=== PATIENT | female | born 1935 | race African-American/Black ===

== ENCOUNTER 2018-09-02 11:48 | Emergency (ER) | payer OTHER ==
--- OUTSIDE RECORDS SUMMARY | 2018-09-02 11:52 | XMS REPORT | Summary of Care ---
:1935 Author Organization [facility] Radiology [place] Address [address] [place] [address]- Encounter HQ Encntr_aliwilliam(FIN) [id number] Date(s): 09/28/17 - 09/28/[address] [place] [phone] [phone] Attending Physician: VISIT, NURSE ST[facility] MAMMO Vital Signs No data available for this section Problem List Condition Effective Dates Status Health Status Informant Body mass index (BMI) of 22.0-22.9 in Active adult(Confirmed) Drug therapy(Confirmed) Active Hypertensive disorder1 Active Other specified Active hypothyroidism(Confirmed) Inguinal adenopathy(Confirmed) Active Inguinal pain2 01/08/13 Active Neutropenia, unspecified(Confirmed) Active 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 Allergies, Adverse Reactions, Alerts Substance Reaction Severity Status penicillins1 Active lisinopril2 Active meloxicam3, 4 Active 1Data migrated from [employer] on 06/07/15. Originally documented as PENICILLIN.2Data migrated from [employer] on 03/08/15. Originally documented as ZESTRIL.3Data migrated from [employer] on 03/08/15. Originally documented as MOBIC.4Data migrated from [employer] on 03/08/15. Originally documented as MELOXICAM. Medications No data available for this section Results No data available for this section Immunizations Given and Recorded Vaccine Date Status Refusal Reason influenza virus vaccine, inactivated 09/28/17 Given influenza virus vaccine, inactivated 08/08/16 Given influenza virus vaccine, inactivated1 08/25/13 Given Hx influenza vaccine-unspecified2 08/25/13 Given pneumococcal 23-valent vaccine3 08/10/12 Given 1Result Comment: fluzone high dose [[id number]]. Migrated from OBS ; Data migrated from [employer] on 12/11/2015.2Result Comment: given. Migrated from OBS ; Data migrated from [employer] on 12/11/2015.3Result Comment: pneumovax. Migrated from [employer] VIS: given August 10, 2012. ; Data migrated from [employer] on 12/11/2015. Procedures Procedure Date Related Diagnosis Body Site Hysterectomy Laminectomy1 Procedure on thyroid gland 1Post op discitis, pain, Social History Social History Type Response Substance Abuse Use: None. Exercise Exercise frequency: 5-6 times/week. Exercise type: Walking. 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 Highest education level: High school. Alcohol Never Smoking Status Never smoker; Exposure to Tobacco Smoke None; Cigarette Smoking Last 365 Days No; Reg Smoking Cessation Counseling No Assessment and Plan No data available for this section
--- OUTSIDE RECORDS SUMMARY | 2018-09-02 11:52 | XMS REPORT | Summary of Care ---
:1935 Author Organization [facility] Address [address] [place] [address]- Encounter HQ Betsyr_ag(FIN) [id number] Date(s): 03/23/18 - 03/23/18 [facility] [address] [place] [phone] [phone] Discharge Disposition: Home or Self Care Attending Physician: Law Nesbitt MD Vital Signs Most recent to oldest [Reference Range]: 1 Height 172.72 cm (03/23/18 9:24 AM) Temperature Oral [96.4-99.1 DegF] 98.8 DegF (03/23/18 9:24 AM) Blood Pressure [90-140/60-90 mmHg] 160/90 mmHg *HI* (03/23/18 9:24 AM) Respiratory Rate [14-20 BRMIN] 14 BRMIN (03/23/18 9:24 AM) Peripheral Pulse Rate [60-100 bpm] 60 bpm (03/23/18 9:24 AM) Weight 70.455 kg (03/23/18 9:24 AM) Body Mass Index 23.62 m2 (03/23/18 9:24 AM) Problem List Condition Effective Dates Status Health [...] Active Tinea pedis(Confirmed) Active 1Data migrated from [employer] on 04/07/15.2Data migrated from [employer] [...] on 03/08/15. Originally documented as MELOXICAM. Medications clobetasol topical 0.05% ointment 1 appl, TOP, BID, # 45 gm, 0 Refill(s) Start Date: 03/23/18 Status: Ordereddiltiazem 300 mg/24 hours oral capsule, extended release 300 mg=1 cap, PO, Daily, # 90 cap, 3 Refill(s), Pharmacy: [facility] Start Date: 03/23/18 Stop Date: 03/18/19 Status: OrderedSynthroid 100 mcg (0.1 mg) oral tablet 100 microgram=1 tab, PO, Daily, # 90 tab, 3 Refill(s), Pharmacy: [facility] Start Date: 03/23/18 Stop Date: 03/18/19 Status: Ordered Results No data available for this section Immunizations Given and Recorded Vaccine Date Status Refusal Reason influenza virus vaccine, inactivated 09/28/17 Given influenza virus vaccine, inactivated 08/08/16 Given influenza virus vaccine, inactivated1 08/25/13 Given Hx influenza vaccine-unspecified2 08/25/13 Given pneumococcal 23-valent vaccine3 08/10/12 Given 1Result Comment: fluzone high dose [[id number]]. Migrated from OBS ; Data migrated from [employer] on 12/11/2015.2Result Comment: given. Migrated from OBS ; Data migrated from [employer] on 12/11/2015.3Result Comment: pneumovax. Migrated from OBS VIS: given August 10, 2012. ; Data migrated from [employer] on 12/11/2015. Procedures Procedure Date Related Diagnosis Body Site Status Hysterectomy Completed Laminectomy1 Completed Procedure on thyroid gland Completed 1Post op discitis, pain, Social History Social History Type Response Substance Abuse Use: None. Exercise Exercise frequency: 5-6 times/week. Exercise type: Walking. 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 Highest education level: High school. Alcohol Never Smoking Status Never smoker; Exposure to Tobacco Smoke None; Cigarette Smoking Last 365 Days No; Reg Smoking Cessation Counseling No entered on: 03/23/18 Assessment and Plan No data available for this section
--- OUTSIDE RECORDS SUMMARY | 2018-09-02 11:52 | XMS REPORT | Summary of Care ---
:1935 Author Organization [facility] Radiology [place] Address [address] [place] [address]- Encounter HQ Encntr_alias(FIN) [id number] Date(s): 03/23/18 - 03/23/[address] [place] [address] [phone] Attending Physician: VISIT, NURSE [facility] DEXA Vital Signs No data available for this [...] 08/10/12 Given 1Result Comment: fluzone high dose [[id number]]. Migrated from [employer] ; Data migrated from [employer] on 12/11/2015.2Result Comment: given. Migrated from OBS ; Data migrated from [employer] on 12/11/2015.3Result Comment: pneumovax. Migrated from [employer] VIS: given August 10, 2012. ; Data migrated from [employer] on 12/11/2015. Procedures Procedure Date Related Diagnosis Body Site Status Hysterectomy Completed Laminectomy1 Completed Procedure on thyroid gland Completed 1Post op discitis, pain, Social History Social History Type Response Substance Abuse Use: None. Exercise Exercise frequency: 5-6 times/week. Exercise type: Walking. 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 Highest education level: High school. Alcohol Never Smoking Status Never smoker; Exposure to Tobacco Smoke None; Cigarette Smoking Last 365 Days No; Reg Smoking Cessation Counseling No entered on: 03/23/18 Assessment and Plan No data available for this section
--- OUTSIDE RECORDS SUMMARY | 2018-09-02 11:52 | XMS REPORT | Continuity of Care Document ---
:1935 Author Organization Interface Problems Problem Status Onset Classification Date Comments Source Date Reported Lichen sclerosus Active 09/15/20 Problem 03/26/2018 Data migrated Medical et 14 from [employer] Group atrophicus<sup>3< Centricity on /sup> 04/07/15. Pain in lower Active 08/30/20 Problem 03/26/2018 Data migrated Medical limb<sup>4</sup> 14 from Group [employer] on 04/07/15. Inguinal Active 01/09/20 Problem 03/26/2018 Data migrated Medical pain<sup>2</sup> 13 from Group [employer] on 04/07/15. Body mass index Active Problem 03/26/2018 Medical of 22.0-22.9 in Group adult(<span ID="[id number]" >Confirmed</span> ) Drug therapy Active Problem 03/26/2018 Medical Group Hypertensive Active Problem 03/26/2018 Data migrated Medical disorder<sup>1</s from Group up> Centricity on 04/07/15. Other specified Active Problem 03/26/2018 Medical hypothyroidism Group Inguinal Active Problem 03/26/2018 Medical adenopathy Group Neutropenia, Active Problem 03/26/2018 Medical unspecified Group Mixed Active Problem 03/26/2018 Medical hyperlipidemia Group Osteopenia Active Problem 03/26/2018 Medical Group Screening for Active Problem 03/26/2018 Medical breast cancer Group Screen for colon Active Problem 03/26/2018 Medical cancer Group Tinea pedis Active Problem 03/26/2018 Medical Group Medications Medication Details Route Status Patient Ordering Order Source Instructions Provider Date Clobetasol 1 appl, Active Propionate TOP, BID, # 018 Medical 0.0005 MG/MG 45 gm, 0 Group Topical Ointment Refill(s) diltiazem 300 300 mg=1 Active mg/24 hours oral cap, PO, 018 Medical capsule, Daily, # 90 Group extended release cap, 3 Refill(s), Pharmacy: [facility] Levothyroxine 100 Active Sodium 0.1 MG microgram=1 018 Medical Oral Tablet tab, PO, Group [Synthroid] Daily, # 90 tab, 3 Refill(s), Pharmacy: [facility] Allergies, Adverse Reactions, Alerts Substance Category Reaction Severity Reaction Status Date Comments Source type Reported meloxicam<s Assertion Drug Active Data MH up>3, allergy 4 migrated Medical 4</sup> from [employer] on 03/08/15. Originally documented as MELOXICAM. penicillins Assertion Drug Active Data MH <sup>1</sup allergy migrated Medical > from [employer] on 06/07/15. Originally documented as PENICILLIN. lisinopril< Assertion Drug Active Data MH sup>2</sup> allergy migrated Medical from [employer] on 03/08/15. Originally documented as ZESTRIL. Immunizations Immunization Date Site Status Last Comments Source Given Updated influenza virus Left completed [facility] Medical vaccine, 7 Deltoid Group inactivated influenza virus Left completed [facility] Medical vaccine, 6 Deltoid Group inactivated Hx influenza completed GE Result Medical vaccine-unspecif 3 Comment: Group ied<sup>2</sup> given. Migrated from OBS ; Data migrated from [employer] on 12/11/2015. influenza virus Left completed [facility] Result Medical vaccine, 3 Deltoid Comment: Group inactivated<sup> fluzone high 1</sup> dose [[id number]]. Migrated from OBS ; Data migrated from [employer] on 12/11/2015. pneumococcal Right completed GE Result Medical 23-valent 2 Deltoid Comment: Group vaccine<sup>3</s pneumovax. up> Migrated from OBS VIS: given August 10, 2012. ; Data migrated from [employer] on 12/11/2015. Results Order Name Results Value Reference Date Interpretation Comments Source Range Breast Breast 09/28 - [facility] [place] ANT incl ANT incl CAD MA CAD MA Read by: Kelby Haley MD Dictated Date/time: 09/28/17 11:39 BILATERAL DIGITAL SCREENING MAMMOGRAM WITH CAD: 09/28/2017 Electronically Signed by: Kelby Haley MD 09/28/17 11 :39 FINAL REPORT Current study was evaluated with a Computer Aided Detection (CAD) system. COMPARISON:Comparison is made to exams dated: 09/26/2016 mammogram, 2014 mammogram, 08/30/2014 mammogram - [facility], and 08/25/2013 mammogram. TECHNIQUE: Mammographic views were obtained using digital acquisition. Current study was also evaluated with a Computer Aided Detection (CAD) system. There are scattered fibroglandular densities in both breasts. FINDINGS: There are benign calcifications in both breasts. No significant masses, calcifications, or other findings are seen in either breast. There has been no significant interval change. IMPRESSION: BENIGN RECOMMENDATION:There is no mammographic evidence of malignancy. A 1 year screening mammogram is recommended.(09/29/2018) This exam was interpreted at [id number] for [facility]. Kelby Haley M.D. ap/penrad:09/28/2017 11:39:58 Central Office Repairer(s): Therese Aguilera, [facility] letter sent: BI-RADS 1/2 Mammogram BI-RADS: 2 Benign Digital Digital - DIGITAL MAMMO SCREENING ANT SILVA 09/26 - [facility] /2016 - [place] Screening Screening BILATERAL DIGITAL SCREENING MAMMOGRAM WITH CAD: 2015 Ant RICARDO Cain MA CLINICAL: Screening. Read by: Robert Saucedo MD Dictated Date/time: 10/09/16 14:22 Electronically Signed by: Robert Saucedo MD 10/09/16 14:22 FINAL REPORT Current study was evaluated with a Computer Aided Detection (CAD) system. Comparison is made to exams dated: 09/10/2015 mammogram and 08/30/2014 mammogram - [facility]. There are scattered fibroglandular densities in both breasts. There are benign calcifications in both breasts. No significant masses, calcifications, or other findings are seen in either breast. There has been no significant interval change. IMPRESSION: BENIGN There is no mammographic evidence of malignancy. A 1 year screening mammogram is recommended. Robert Saucedo M.D. sj/penrad:10/09/2016 14:22:03 Central Office Repairer: Rosario Holt, [facility] This exam was dictated and interpreted by [id number] for [facility]. letter sent: Normal exam Mammogram BI-RADS: 2 Benign Bone Bone EXAM: 08/29 - [facility] Density Density /2015 - [place] DXA Dual DXA Dual Bone densitometry (DEXA). Energy MA Energy MA Read by: Josue Razo MD Dictated Date/time: 08/30/16 09:48 CLINICAL: Electronically Signed by: Josue Razo MD 08/30/16 09:50 FINAL REPORT Routine screening. Additional: ; . Age: 81 years. Gender: Female. Menopausal status: Postmenopausal. TECHNIQUE: Bone mineral density (BMD) analysis was performed. Equipment: [employer] QDR 4500C. COMPARISON: Bone densitometry: None. FINDINGS: L1-L4 Vertebra: BMD: 1.179. T score: 0.3. WHO criteria valuation for this body part is normal. Left Femoral Neck: BMD: 0.805. T score: -1. WHO criteria valuation for this body part is normal. Left Hip: BMD: 0.916. T score: -0.7. WHO criteria valuation for this body part is normal. IMPRESSION: 1. BMD valuation by WHO criteria is normal. Note: World Health Organization (WHO) Criteria: 1. For postmenopausal/perimenopausal females and males >/=50 years old, T scores (standard deviations above or below the gender-matched young-adult mean) are used. a. T score >/=-1 is "normal." b. T score -1 to -2.5 is "osteopenia." c. T score </=-2.5 is "osteoporosis." 2. For premenopausal females and males <50 years old, Z scores (standard deviations above or below the gender-matched and age-matched mean) are used. a. Z score > -2 is "within the expected range for age." b. Z score </=-2 is "below the expected range for age." 3. When appropriate, a medical evaluation for secondary causes of low BMD may be considered. Chest 2 Chest 2 CHEST PA AND LATERAL 08/08 - [facility] views DX views DX /2015 - [place] History: 81-year-old female with hypertension and inguinal adenopathy. Read by: Aidan Gonsalez MD Dictated Date/time: 08/08/16 13:43 Electronically Signed by: Aidan Gonsalez 08/08/16 13:44 FINAL REPORT Comparison: None. Findings: Lungs: The lungs are hyper expanded without an infiltrate, consolidation or nodule. Pleura: No pleural effusion. Mediastinum and bonilla: Unremarkable with calcifications along the aortic arch. Heart size: Normal. Skeletal: Unremarkable. IMPRESSION: Hyperexpanded lungs. There is no acute cardio pulmonary abnormality. Digital Digital - DIGITAL MAMMO SCREENING ANT SILVA 09/10 - [facility] /2014 - [place] Screening Screening BILATERAL DIGITAL SCREENING MAMMOGRAM WITH CAD: 2014 Ant Cain MA Current study was evaluated with a Computer Aided Detection (CAD) system. Read by: Josue Razo MD Dictated Date/time: 09/11/15 11:14 Comparison is made to exams dated: 08/30/2014 mammogram - [facility] and 08/25/2013 mammogram. Electronically Signed by: Jsoue Razo MD 09/11/15 11 :14 FINAL REPORT There are scattered fibroglandular densities in both breasts. There are benign calcifications in both breasts. No significant masses, calcifications, or other findings are seen in either breast. There has been no significant interval change. IMPRESSION: BENIGN There is no mammographic evidence of malignancy. A 1 year screening mammogram is recommended. Josue puente/penmarek:09/11/2015 11:14:41 Central Office Repairer: Rosario Holt, [facility] This exam was dictated and interpreted by [id number] for [facility]. letter sent: Normal exam Mammogram BI-RADS: 2 Benign Vital Signs Vital Sign Value Date Comments Source Weight 70.455 03/23/2018 Medical Group BMI Calculated 23.62 03/23/2018 Medical [facility] Height 172.72 cm 03/23/2018 Medical Group Respitory Rate 14 03/23/2018 Medical Group Temperature Oral (F) 98.8 F 03/23/2018 Medical Group Heart Rate 60 03/23/2018 Medical Group Systolic (mm Hg) 160 03/23/2018 Medical Group Diastolic (mm Hg) 90 03/23/2018 Medical Group Height 173.99 cm 09/28/2017 Medical Group BMI Calculated 23.42 09/28/2017 Medical Group Weight 70.909 09/28/2017 Medical Group Systolic (mm Hg) 140 09/28/2017 Medical Group Diastolic (mm Hg) 80 09/28/2017 Medical Group Temperature Oral (F) 98.3 F 09/28/2017 Medical Group Respitory Rate 15 09/28/2017 Medical Group Heart Rate 68 09/28/2017 Medical Group Encounters Location Location Encounter Encounter Reason Attending ADM DC Status Source Details Type Number For Provider Date Date Visit Outpatient [id number] RENATA 09/10 [facility] [place] Outpatient [id number] MAMMO VISIT 09/10 [facility] [place] Outpatient [id number] MAMMO VISIT 09/10 [facility] [place] Outpatient [id number] XRAY VISIT 08/08 [facility] [place] Outpatient [id number] XRAY VISIT 08/08 [facility] [place] Outpatient [id number] RENATA 08/08 [facility] [place] Outpatient [id number] ADRIENNE-MAGGIE 08/22 [facility] [place] Outpatient [id number] RENATA 08/22 [facility] [place] Outpatient [id number] DEXA VISIT 08/26 [facility] [place] Outpatient [id number] DEXA VISIT 08/29 [facility] [place] Outpatient [id number] DEXA VISIT 08/29 [facility] [place] Outpatient [id number] CARDIO/PULM 08/29 [facility] O VISIT /2015 [place] Outpatient [id number] MAMMO VISIT 09/22 [facility] [place] Outpatient [id number] MAMMO VISIT 09/26 [facility] [place] Outpatient [id number] MAMMO VISIT 09/26 [facility] [place] Outpatient [id number] RENATA 02/20 [facility] [place] Outpatient [id number] RENATA 06/19 [facility] [place] Outpatient [id number] RENATA 09/28 [facility] [place] Outpatient [id number] MAMMO VISIT 09/28 [facility] [place] Outpatient [id number] MAMMO VISIT 09/28 [facility] [place] [facility] Outpatient [id number] Renata 09/28 09/29 [facility] [place] [facility] Ambulatory [id number] NURSE VISIT 09/28 09/28 Radiology Pre-Reg Medical [place] [facility] Outpatient [id number] Renata 09/28 09/29 [facility] Group [place] Outpatient [id number] DEXA VISIT 03/23 [facility] [place] Outpatient [id number] RENATA 03/23 [facility] [place] [facility] Ambulatory [id number] NURSE VISIT 03/23 03/23 Radiology Pre-Reg /2017 Medical [place] [facility] Outpatient [id number] Renata 03/23 03/24 [facility] Medicine Group [place] Outpatient [id number] DEXA VISIT 09/29 [facility] [place] Outpatient [id number] RENATA 09/29 [facility] [place] Procedures Procedure Code Date Perfomer Comments Source Hysterectomy [id number] Medical Group Laminectomy<sup>1</ [id number] Post op Medical sup> discitis, Group pain, Procedure on [id number] Medical thyroid gland Group
--- OUTSIDE RECORDS SUMMARY | 2018-09-02 11:52 | XMS REPORT | Summary of Care ---
:1935 Author Organization [facility] Address [address] [place] [address]- Encounter HQ Pretty_ag(FIN) [id number] Date(s): 09/28/17 - 09/28/17 [facility] [address] [place] [phone] Discharge Disposition: Home or Self Care Attending Physician: Law Nesbitt MD Vital Signs Most recent to oldest [Reference Range]: 1 Height 173.99 cm (09/28/17 8:43 AM) Temperature Oral [96.4-99.1 DegF] 98.3 DegF (09/28/17 8:43 AM) Blood Pressure [90-140/60-90 mmHg] 140/80 mmHg (09/28/17 8:43 AM) Respiratory Rate [14-20 BRMIN] 15 BRMIN (09/28/17 8:43 AM) Peripheral Pulse Rate [60-100 bpm] 68 bpm (09/28/17 8:43 AM) Weight 70.909 kg (09/28/17 8:43 AM) Body Mass Index 23.42 m2 (09/28/17 8:43 AM) Problem List Condition Effective Dates Status [...] 03/08/15. Originally documented as MELOXICAM. Medications No Known Medications Results No data available for this section Immunizations Given and Recorded Vaccine Date Status Refusal Reason influenza virus vaccine, inactivated 09/28/17 Given influenza virus vaccine, inactivated 08/08/16 Given influenza virus vaccine, inactivated1 08/25/13 Given Hx influenza vaccine-unspecified2 08/25/13 Given pneumococcal 23-valent vaccine3 08/10/12 Given 1Result Comment: fluzone high dose [[id number]]. Migrated from OBS ; Data migrated from [employer] on 12/11/2015.2Result Comment: given. Migrated from OBS ; Data migrated from [employer] on 12/11/2015.3Result Comment: pneumovax. Migrated from OBS VIS: 7 -29 -97 given August 10, 2012. ; Data migrated from [employer] on 12/11/2015. Procedures Procedure Date Related Diagnosis Body Site Hysterectomy Laminectomy1 Procedure on thyroid gland 1Post op discitis, pain, Social History Social History Type Response Substance Abuse Use: None. Exercise Exercise frequency: 5-6 times/week. Exercise type: Walking. Employment/School Status: Retired. Work/School description: [employer]. Highest education level: High school. Alcohol Never Smoking Status Never smoker; Exposure to Tobacco Smoke None; Cigarette Smoking Last 365 Days No; Reg Smoking Cessation Counseling No Assessment and Plan No data available for this section
--- OUTSIDE RECORDS SUMMARY | 2018-09-02 11:52 | XMS REPORT | Summary of Care ---
:1935 Author Organization [facility] [address] [place] [address]- Encounter HQ Pretty_ag(FIN) [id number] Date(s): 09/28/17 - 09/28/17 [facility] [address] [place] [phone] Discharge Disposition: Home or Self Care Attending Physician: Law Nesbitt MD Vital Signs No data available for this [...] 08/10/12 Given 1Result Comment: fluzone high dose [[id number]]. Migrated from OBS ; Data migrated from [employer] on 12/11/2015.2Result Comment: given. Migrated from OBS ; Data migrated from [employer] on 12/11/2015.3Result Comment: pneumovax. Migrated from OBS VIS: given August 10, 2012. ; Data migrated from [employer] on 12/11/2015. Procedures Procedure Date Related Diagnosis Body Site Hysterectomy Laminectomy1 Procedure on thyroid gland 1Post op discitis, pain, Social History Social History Type Response Substance Abuse Use: None. Exercise Exercise frequency: 5-6 times/week. Exercise type: Walking. 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 Highest education level: High school. Alcohol Never Smoking Status Never smoker; Exposure to Tobacco Smoke None; Cigarette Smoking Last 365 Days No; Reg Smoking Cessation Counseling No Assessment and Plan No data available for this section
--- NOTE | 2018-09-02 13:43 | ER ---
Nurse's Notes [facility] Name: Dinora Gutierrez Age: 83 yrs Sex: Female : 1935 Arrival Date: 09/02/2018 Time: 11:50 Bed 10 Private MD: Diagnosis: Asymptomatic Hypertension Presentation: 09/02 11:53 Presenting complaint: Patient states: "I just want to check my blood pressure. It was aj1 up high a little a week ago and I need to follow up on it. My doctor is in [place] and I don't want to drive all the way up there." Denies pain.. Transition of care: patient was not received from another setting of care. Onset of symptoms was September 02, 2018. Risk Assessment: Do you want to hurt yourself or someone else? Patient reports no desire to harm self or others. Initial Sepsis Screen: Does the patient meet any 2 criteria? No. Patient's initial sepsis screen is negative. Does the patient have a suspected source of infection? No. Patient's initial sepsis screen is negative. Care prior to arrival: None. 11:53 Method Of Arrival: Ambulatory aj1 11:53 Acuity: XAVIER 4 aj1 Triage Assessment: 11:55 General: Appears in no apparent distress. comfortable, Behavior is calm, cooperative, aj1 appropriate for age. Pain: Denies pain. Neuro: Level of Consciousness is awake, alert, obeys commands. Cardiovascular: Patient's skin is warm and dry. Respiratory: Airway is patent Respiratory effort is even, unlabored, Respiratory pattern is regular, symmetrical. Historical: - Allergies: 11:55 PENICILLINS; aj1 11:55 zestil; aj1 - Home Meds: 11:55 Cartia XT 300 mg Oral cp24 1 cap once daily [Active]; levothyroxine 100 mcg tab 1 tab aj1 once daily [Active]; - PMHx: 11:55 Hypertension; Hypothyroidism; aj1 - Immunization history:: Flu vaccine is not up to date. - Social history:: Smoking status: Patient/guardian denies using tobacco. - Ebola Screening: : Patient denies travel to an Ebola-affected area in the 21 days before illness onset. - Family history:: not pertinent. - Hospitalizations: : No recent hospitalization is reported. Screenin:02 Abuse screen: Denies threats or abuse. Denies injuries from another. Nutritional aj1 screening: No deficits noted. Tuberculosis screening: No symptoms or risk factors identified. 12:57 Fall Risk None identified. aj1 Assessment: 12:02 General: Appears in no apparent distress. comfortable, Behavior is calm, cooperative, aj1 appropriate for age. Pain: Denies pain. Neuro: Level of Consciousness is awake, alert, obeys commands, Denies headache. Cardiovascular: Patient's skin is warm and dry. Respiratory: Airway is patent Respiratory effort is even, unlabored, Respiratory pattern is regular, symmetrical. GI: No signs and/or symptoms were reported involving the gastrointestinal system. : No signs and/or symptoms were reported regarding the genitourinary system. EENT: No signs and/or symptoms were reported regarding the EENT system. Derm: No signs and/or symptoms reported regarding the dermatologic system. Skin is pink, warm \\T\\ dry. normal. Musculoskeletal: No signs and/or symptoms reported regarding the musculoskeletal system. Circulation, motion, and sensation intact. Vital Signs: 11:55 BP 170 / 82; Pulse 74; Resp 16; Temp 97.0; Pulse Ox 99% on R/A; Weight 70.31 kg (R); aj1 Height 5 ft. 10 in. (177.80 cm) (R); Pain 0/10; 12:57 BP 165 / 91; Pulse 77; Resp 18; aj1 11:55 Body Mass Index 22.24 (70.31 kg, 177.80 cm) aj1 ED Course: 11:50 Patient arrived in ED. as 11:54 Triage completed. aj1 11:55 Arm band placed on Patient placed in an exam room. aj1 11:58 Paul Ramos MD is Attending Physician. rn 12:02 Patient has correct armband on for positive identification. Bed in low position. Call aj1 light in reach. Side rails up X 1. 12:02 No provider procedures requiring assistance completed. aj1 12:57 Patient did not have IV access during this emergency room visit. aj1 Administered Medications: No medications were administered Outcome: 12:34 Discharge ordered by . rn 12:57 Discharged to home ambulatory. aj1 12:57 Condition: good 12:57 Discharge instructions given to patient, Instructed on discharge instructions, follow up and referral plans. Demonstrated understanding of instructions, follow-up care. 12:57 Patient left the ED. aj1 Signatures: Alka Ball RN RN aj1 Amie Cruz Roman, MD MD rn
--- NOTE | 2018-09-02 13:43 | EDPHYS ---
Physician Documentation [facility] Name: Dinora Gutierrez Age: 83 yrs Sex: Female : 1935 Arrival Date: 09/02/2018 Time: 11:50 Bed 10 Private MD: ED Physician Paul Ramos HPI: 09/02 12:30 This 83 yrs old Black Female presents to ER via Ambulatory with complaints of Blood rn Pressure Problem. 12:30 Reports high blood pressure for "some time", otherwise feels ok, has been on BP meds rn since 1991. Reports has appt with pcp in 2 weeks and didn't want to make the drive if she didn't have to. No headache/focal neurological problem/chest pain/sob/abd pain. Checked BP at store, read high, reports average normally in 150s-160s. Has been taking her meds regularly.. Onset: The symptoms/episode began/occurred at an unknown time. Severity of symptoms: At their worst the symptoms were moderate in the emergency department the symptoms are unchanged. The patient has experienced similar episodes in the past. The patient has not recently seen a physician. Historical: - Allergies: 11:55 PENICILLINS; aj1 11:55 zestil; aj1 - Home Meds: 11:55 Cartia XT 300 mg Oral cp24 1 cap once daily [Active]; levothyroxine 100 mcg tab 1 tab aj1 once daily [Active]; - PMHx: 11:55 Hypertension; Hypothyroidism; aj1 - Immunization history:: Flu vaccine is not up to date. - Social history:: Smoking status: Patient/guardian denies using tobacco. - Ebola Screening: : Patient denies travel to an Ebola-affected area in the 21 days before illness onset. - Family history:: not pertinent. - Hospitalizations: : No recent hospitalization is reported. ROS: 12:30 Constitutional: Negative for fever, chills, and weight loss, Eyes: Negative for injury, rn pain, redness, and discharge, Neck: Negative for injury, pain, and swelling, Cardiovascular: Negative for chest pain, palpitations, and edema, Respiratory: Negative for shortness of breath, cough, wheezing, and pleuritic chest pain, Abdomen/GI: Negative for abdominal pain, nausea, vomiting, diarrhea, and constipation, MS/Extremity: Negative for injury and deformity, Skin: Negative for injury, rash, and discoloration, Neuro: Negative for headache, weakness, numbness, tingling, and seizure. Exam: 12:30 Constitutional: This is a well developed, well nourished patient who is awake, alert, rn and in no acute distress. Head/Face: Normocephalic, atraumatic. ENT: MMM Cardiovascular: Regular rate and rhythm with a normal S1 and S2. No gallops, murmurs, or rubs. Normal PMI, no JVD. No pulse deficits. Respiratory: Lungs have equal breath sounds bilaterally, clear to auscultation and percussion. No rales, rhonchi or wheezes noted. No increased work of breathing, no retractions or nasal flaring. Abdomen/GI: soft, non-tender MS/ Extremity: Pulses equal, no cyanosis. Neurovascular intact. Full, normal range of motion. Equal circumference. Neuro: Awake and alert, GCS 15, oriented to person, place, time, and situation. Cranial nerves II-XII grossly intact. Motor strength 5/5 in all extremities. Sensory grossly intact. NOrmal gait and cerebellar exam. Vital Signs: 11:55 BP 170 / 82; Pulse 74; Resp 16; Temp 97.0; Pulse Ox 99% on R/A; Weight 70.31 kg (R); aj1 Height 5 ft. 10 in. (177.80 cm) (R); Pain 0/10; 12:57 BP 165 / 91; Pulse 77; Resp 18; aj1 11:55 Body Mass Index 22.24 (70.31 kg, 177.80 cm) aj1 MDM: 11:58 Patient medically screened. rn 12:30 Differential Diagnosis asymptomatic hypertension. Data reviewed: vital signs, nurses rn notes, and as a result, I will discharge patient. Counseling: I had a detailed discussion with the patient and/or guardian regarding: the historical points, exam findings, and any diagnostic results supporting the discharge/admit diagnosis, the need for outpatient follow up, to return to the emergency department if symptoms worsen or persist or if there are any questions or concerns that arise at home. Special discussion: I discussed with the patient/guardian in detail that at this point there is no indication for admission to the hospital. It is understood, however, that if the symptoms persist or worsen the patient needs to return immediately for re-evaluation. Based on the history and exam findings, there is no indication for further emergent testing or inpatient evaluation. I discussed with the patient/guardian the need to see the primary care provider for further evaluation of the symptoms. Administered Medications: No medications were administered Disposition: 09/02/18 12:34 Discharged to Home. Impression: Asymptomatic Hypertension. - Condition is Stable. - Discharge Instructions: Hypertension. - Medication Reconciliation Form, Thank You Letter, Antibiotic Education, Prescription Opioid Use form. - Follow up: Private Physician; When: As needed; Reason: Recheck today's complaints, Re-evaluation by your physician. - Problem is an ongoing problem. - Symptoms are unchanged. Signatures: Alka Ball RN RN aj1 Paul Ramos MD MD furnace and wash equipment operator: (The following items were deleted from the chart) 12:57 12:34 09/02/2018 12:34 Discharged to Home. Impression: Asymptomatic Hypertension. aj1 Condition is Stable. Forms are Medication Reconciliation Form, Thank You Letter, Antibiotic Education, Prescription Opioid Use. Follow up: Private Physician; When: As needed; Reason: Recheck today's complaints, Re-evaluation by your physician. Problem is an ongoing problem. Symptoms are unchanged. rn
== END 2018-09-02 12:57 | disposition home or self-care (01) ==
LOC: ER 11:48
DX: I10 Essential (primary) hypertension (principal); E03.9 Hypothyroidism, unspecified; Z88.0 Allergy status to penicillin; Z88.8 Allergy status to other drugs, medicaments and biological substances
CPT/HCPCS: 99281

== ENCOUNTER 2018-10-11 10:07 | Emergency (ER) | payer OTHER ==
--- OUTSIDE RECORDS SUMMARY | 2018-10-11 10:10 | XMS REPORT | Continuity of Care Document ---
[...] 03/26/2018 Medical of 22.0-22.9 in Group adult(<span ID="[id number]" >Confirmed</span> ) Drug therapy Active Problem 03/26/2018 [...] Group extended release cap, 3 Refill(s), Pharmacy: [id number] Levothyroxine 100 Active Sodium 0.1 MG microgram=1 018 Medical Oral Tablet tab, PO, Group [Synthroid] Daily, # 90 tab, 3 Refill(s), Pharmacy: [id number] Allergies, Adverse Reactions, Alerts Substance [...] Source Given Updated influenza virus Left completed [facility] Medical vaccine, 7 Deltoid Group inactivated influenza virus Left completed [facility] Medical vaccine, 6 Deltoid Group inactivated Hx influenza completed GE Result Medical vaccine-unspecif 3 Comment: Group ied<sup>2</sup> given. Migrated from OBS ; Data migrated from [employer] on 12/11/2015. influenza virus Left completed GE Result Medical vaccine, 3 Deltoid Comment: Group inactivated<sup> fluzone high 1</sup> dose [[id number]]. Migrated from OBS ; Data migrated from [employer] on 12/11/2015. pneumococcal Right completed GE Result Medical 23-valent 2 Deltoid Comment: Group vaccine<sup>3</s pneumovax. up> Migrated from OBS VIS: given August 10, 2012. ; Data migrated from [employer] on 12/11/2015. Results Order Name Results Value Reference Date Interpretation Comments Source Range Breast Breast 09/28 - [facility] - [facility] ANT incl [...] 09/26/2016 mammogram, 2014 mammogram, 08/30/2014 mammogram - [facility], and 08/25/2013 mammogram. TECHNIQUE: Mammographic views were [...] is recommended.(09/29/2018) This exam was interpreted at [id number] for [facility]. Kelby Haley M.D. ap/penrad:09/28/2017 11:39:58 Multimedia Instructional Designer(s): Therese Aguilera, [facility] letter sent: BI-RADS 1/2 Mammogram BI-RADS: 2 [...] dated: 09/10/2015 mammogram and 08/30/2014 mammogram - [facility]. There are scattered fibroglandular densities in both breasts. There are benign calcifications in both breasts. No significant masses, calcifications, or other findings are seen in either breast. There has been no significant interval change. IMPRESSION: BENIGN There is no mammographic evidence of malignancy. A 1 year screening mammogram is recommended. Robert Saucedo M.D. sj/penrad:10/09/2016 14:22:03 Multimedia Instructional Designer: Rosario Holt, [facility] This exam was dictated and interpreted by [id number] for [facility]. letter sent: Normal exam Mammogram BI-RADS: 2 Benign Bone Bone EXAM: 08/29 - [facility] Density /2015 - [place] DXA Dual DXA Dual Bone densitometry (DEXA). Energy MA Energy MA Read by: Josue Razo MD Dictated Date/time: 08/30/16 09:48 CLINICAL: Electronically Signed by: Josue Razo MD 08/30/16 09:50 FINAL REPORT Routine screening. Additional: ; . Age: 81 years. Gender: Female. Menopausal status: Postmenopausal. TECHNIQUE: Bone mineral density (BMD) analysis was performed. Equipment: [employer] QDR 4500C. COMPARISON: Bone densitometry: None. FINDINGS: [...] 2 CHEST PA AND LATERAL 08/08 - [facility] views DX views DX /2015 - [place] History: 81-year-old female with hypertension and inguinal [...] 09/10 - [facility]ammo /2014 - [place] Screening Screening BILATERAL DIGITAL SCREENING MAMMOGRAM WITH CAD: 2014 Ant Cain MA Current study was evaluated with a Computer Aided Detection (CAD) system. Read by: Josue Razo MD Dictated Date/time: 09/11/15 11:14 Comparison is made to exams dated: 08/30/2014 mammogram - [facility] and 08/25/2013 mammogram. Electronically Signed by: Josue Razo MD 09/11/15 11 :14 FINAL REPORT There are scattered fibroglandular densities in both breasts. There are benign calcifications in both breasts. No significant masses, calcifications, or other findings are seen in either breast. There has been no significant interval change. IMPRESSION: BENIGN There is no mammographic evidence of malignancy. A 1 year screening mammogram is recommended. Josue puente/penmarek:09/11/2015 11:14:41 Multimedia Instructional Designer: Rosario Holt, [facility] This exam was dictated and interpreted by [id number] for [facility]. letter sent: Normal exam Mammogram BI-RADS: 2 Benign Vital Signs Vital Sign Value Date Comments Source Weight 70.455 03/23/2018 Medical Group BMI Calculated 23.62 03/23/2018 Medical [facility] Height 172.72 cm 03/23/2018 Medical Group [...] Number For Provider Date Date Visit Outpatient [id number] RENATA 09/10 [facility] Outpatient [id number] MAMMO VISIT 09/10 [facility] Outpatient [id number] MAMMO VISIT 09/10 [facility] Outpatient [id number] XRAY VISIT 08/08 [facility] [place] Outpatient [id number] XRAY VISIT 08/08 [facility] [place] Outpatient [id number] RENATA 08/08 [facility] [place] Outpatient [id number] ADRIENNE-MAGGIE 08/22 [facility] Outpatient [id number] RENATA 08/22 [facility] Outpatient [id number] DEXA VISIT 08/26 [facility] [place] Outpatient [id number] DEXA VISIT 08/29 [facility] [place] Outpatient [id number] DEXA VISIT 08/29 [facility] [place] Outpatient [id number] CARDIO/PULM 08/29 [facility] O VISIT /2015 [facility] Outpatient [id number] MAMMO VISIT 09/22 [facility] Outpatient [id number] MAMMO VISIT 09/26 [facility] Outpatient [id number] MAMMO VISIT 09/26 [facility] Outpatient [id number] RENATA 02/20 [facility] [place] Outpatient [id number] RENATA 06/19 [facility] Outpatient [id number] RENATA 09/28 [facility] Outpatient [id number] MAMMO VISIT 09/28 [facility] [place] Outpatient [id number] MAMMO VISIT 09/28 [facility] Outpatient [id number] Renata 09/28 09/29 [facility] Outpatient [id number] Renata 09/28 09/29 [facility] Ambulatory [id number] NURSE VISIT 09/28 09/28 Radiology Pre-Reg /2016 [facility] Outpatient [id number] DEXA VISIT 03/23 [facility] Outpatient [id number] RENATA 03/23 [facility]u [facility] Ambulatory [id number] NURSE VISIT 03/23 03/23 Radiology Pre-Reg /2017 [facility] Outpatient [id number] Renata 03/23 03/24 [facility] [place] [facility] [id number] RENATA 09/03 [facility] Outpatient [id number] DEXA VISIT 10/13 [facility] [place] Outpatient [id number] MAMMO VISIT 10/13 [facility] [place] Outpatient [id number] REANTA 10/13 [facility] Procedures Procedure Code Date Perfomer Comments Source Hysterectomy [id number] Medical Group Laminectomy<sup>1</ [id number] Post op Medical sup> discitis, Group pain, Procedure on [id number] Medical thyroid gland Group
--- NOTE | 2018-10-11 10:28 | EDPHYS ---
Physician Documentation [facility] Name: Dinora Gutierrez Age: 83 yrs Sex: Female : 1935 Arrival Date: 10/11/2018 Time: 10:08 Bed 20 Private MD: ED Physician Charles Bullock HPI: 10/11 10:27 This 83 yrs old Black Female presents to ER via Ambulatory with complaints of High jr8 Blood Pressure. 10:27 Associated signs and symptoms: The patient has no apparent associated signs or jr8 symptoms. The patient has experienced similar episodes in the past, chronically. The patient has not recently seen a physician. Patient came to get routine blood work done at our outpatient center. Wanted us to check her blood pressure as well. Denies any symptoms . Historical: - Allergies: 10:21 PENICILLINS; tw2 10:21 zestil; tw2 10:21 Lisinopril; tw2 - Home Meds: 10:21 levothyroxine 100 mcg tab 1 tab once daily [Active]; Cartia XT 300 mg Oral cp24 1 cap tw2 once daily [Active]; - PMHx: 10:21 Hypertension; Hypothyroidism; tw2 - Immunization history:: Adult Immunizations. - Social history:: Smoking status: . - Ebola Screening: : Patient denies travel to an Ebola-affected area in the 21 days before illness onset. ROS: 10:27 Constitutional: Negative for fever, chills, and weight loss. jr8 10:27 All other systems are negative. Exam: 10:27 Eyes: Pupils equal round and reactive to light, extra-ocular motions intact. Lids and jr8 lashes normal. Conjunctiva and sclera are non-icteric and not injected. Cornea within normal limits. Periorbital areas with no swelling, redness, or edema. ENT: Nares patent. No nasal discharge, no septal abnormalities noted. Tympanic membranes are normal and external auditory canals are clear. Oropharynx with no redness, swelling, or masses, exudates, or evidence of obstruction, uvula midline. Mucous membranes moist. Neck: Trachea midline, no thyromegaly or masses palpated, and no cervical lymphadenopathy. Supple, full range of motion without nuchal rigidity, or vertebral point tenderness. No Meningismus. Cardiovascular: Regular rate and rhythm with a normal S1 and S2. No gallops, murmurs, or rubs. Normal PMI, no JVD. No pulse deficits. Respiratory: Lungs have equal breath sounds bilaterally, clear to auscultation and percussion. No rales, rhonchi or wheezes noted. No increased work of breathing, no retractions or nasal flaring. Abdomen/GI: Soft, non-tender, with normal bowel sounds. No distension or tympany. No guarding or rebound. No evidence of tenderness throughout. Back: No spinal tenderness. No costovertebral tenderness. Full range of motion. Skin: Warm, dry with normal turgor. Normal color with no rashes, no lesions, and no evidence of cellulitis. MS/ Extremity: Pulses equal, no cyanosis. Neurovascular intact. Full, normal range of motion. Neuro: Awake and alert, GCS 15, oriented to person, place, time, and situation. Cranial nerves II-XII grossly intact. Motor strength 5/5 in all extremities. Sensory grossly intact. Cerebellar exam normal. Normal gait. Vital Signs: 10:18 BP 167 / 85; Pulse 74; Resp 17; Temp 97.7(O); Pulse Ox 99% on R/A; Pain 0/10; tw2 10:38 BP 152 / 70; Pulse 65; Resp 17; Pulse Ox 100% on R/A; tw2 MDM: 10:13 Patient medically screened. [facility] 10:26 Data reviewed: vital signs, nurses notes, and as a result, I will discharge patient. jr8 Data interpreted: Pulse oximetry: on room air is 99 %. Interpretation: normal. Counseling: I had a detailed discussion with the patient and/or guardian regarding: the historical points, exam findings, and any diagnostic results supporting the discharge/admit diagnosis, the need for outpatient follow up, a family practitioner, to return to the emergency department if symptoms worsen or persist or if there are any questions or concerns that arise at home. Administered Medications: No medications were administered Disposition: 10:50 Co-signature as Attending Physician, Charles Bullock MD I agree with the assessment and [facility] plan of care. Disposition: 10/11/18 10:27 Discharged to Home. Impression: Encounter for general adult medical examination without abnormal findings. - Condition is Stable. - Discharge Instructions: Health Maintenance, Female. - Medication Reconciliation Form, Thank You Letter, Antibiotic Education, Prescription Opioid Use form. - Follow up: Private Physician; When: As needed; Reason: Recheck today's complaints, Continuance of care, Re-evaluation by your physician. - Problem is new. - Symptoms have improved. Signatures: Charles Bullock MD MD cha Roszak, Josh, PA PA jr8 Abril Curry RN RN tw2 Corrections: (The following items were deleted from the chart) 10:39 10:27 10/11/2018 10:27 Discharged to Home. Impression: Encounter for general adult tw2 medical examination without abnormal findings. Condition is Stable. Forms are Medication Reconciliation Form, Thank You Letter, Antibiotic Education, Prescription Opioid Use. Follow up: Private Physician; When: As needed; Reason: Recheck today's complaints, Continuance of care, Re-evaluation by your physician. Problem is new. Symptoms have improved. jr8
--- NOTE | 2018-10-11 10:28 | ER ---
Nurse's Notes [facility] Name: Dinora Gutierrez Age: 83 yrs Sex: Female : 1935 Arrival Date: 10/11/2018 Time: 10:08 Bed 20 Private MD: Diagnosis: Encounter for general adult medical examination without abnormal findings Presentation: 10/11 10:17 Presenting complaint: Patient states: i just wanted my blood pressure checked. i dont tw2 need to see a doctor, i dont have pain or sob. Transition of care: patient was not received from another setting of care. Onset of symptoms was October 11, 2018. Risk Assessment: Do you want to hurt yourself or someone else? Patient reports no desire to harm self or others. Initial Sepsis Screen: Does the patient meet any 2 criteria? No. Patient's initial sepsis screen is negative. Does the patient have a suspected source of infection? No. Patient's initial sepsis screen is negative. Care prior to arrival: None. 10:17 Method Of Arrival: Ambulatory tw2 10:17 Acuity: XAVIER 4 tw2 Historical: - Allergies: 10:21 PENICILLINS; tw2 10:21 zestil; tw2 10:21 Lisinopril; tw2 - Home Meds: 10:21 levothyroxine 100 mcg tab 1 tab once daily [Active]; Cartia XT 300 mg Oral cp24 1 cap tw2 once daily [Active]; - PMHx: 10:21 Hypertension; Hypothyroidism; tw2 - Immunization history:: Adult Immunizations. - Social history:: Smoking status: . - Ebola Screening: : Patient denies travel to an Ebola-affected area in the 21 days before illness onset. Screenin:21 Abuse screen: Denies threats or abuse. Nutritional screening: No deficits noted. tw2 Tuberculosis screening: No symptoms or risk factors identified. Fall Risk None identified. Assessment: 10:20 Reassessment: provider DONI Kelley at bedside at this time. tw2 10:20 General: Appears in no apparent distress. Behavior is calm, cooperative, appropriate tw2 for age. Pain: Denies pain. Neuro: Level of Consciousness is awake, alert, obeys commands, Oriented to person, place, time, situation. Cardiovascular: Denies chest pain, shortness of breath, Heart tones S1 S2 Patient's skin is warm and dry. Respiratory: Airway is patent Respiratory effort is even, unlabored, Respiratory pattern is regular, symmetrical, Breath sounds are clear bilaterally. GI: No signs and/or symptoms were reported involving the gastrointestinal system. : No signs and/or symptoms were reported regarding the genitourinary system. EENT: No signs and/or symptoms were reported regarding the EENT system. Derm: No signs and/or symptoms reported regarding the dermatologic system. Musculoskeletal: Range of motion: intact in all extremities. 10:38 Reassessment: Patient appears in no apparent distress at this time. No changes from tw2 previously documented assessment. Patient and/or family updated on plan of care and expected duration. Pain level reassessed. Patient is alert, oriented x 3, equal unlabored respirations, skin warm/dry/pink. Vital Signs: 10:18 BP 167 / 85; Pulse 74; Resp 17; Temp 97.7(O); Pulse Ox 99% on R/A; Pain 0/10; tw2 10:38 BP 152 / 70; Pulse 65; Resp 17; Pulse Ox 100% on R/A; tw2 ED Course: 10:08 Patient arrived in ED. rg4 10:11 Abril Curry, LEDA is Primary Nurse. tw2 10:13 Charles Bullock MD is Attending Physician. keara 10:16 [facility]orena [facility]. jr8 10:18 Triage completed. tw2 10:19 Arm band placed on. tw2 10:21 Bed in low position. Call light in reach. Pulse ox on. NIBP on. tw2 10:38 No apparent distress. tw2 10:38 No provider procedures requiring assistance completed. Patient did not have IV access tw2 during this emergency room visit. Administered Medications: No medications were administered Outcome: 10:27 Discharge ordered by . jr8 10:38 Discharged to home ambulatory. tw2 10:38 Condition: stable 10:38 Discharge instructions given to patient, Instructed on discharge instructions, follow up and referral plans. Demonstrated understanding of instructions, follow-up care. 10:39 Patient left the ED. tw2 Signatures: Charles Bullock MD MD cha Roszak, Josh, PA PA jrAbril Díaz RN RN tw2 Julissa Solano rg4
== END 2018-10-11 10:39 | disposition home or self-care (01) ==
LOC: ER 10:07
DX: Z00.00 Encounter for general adult medical examination without abnormal findings (principal); I10 Essential (primary) hypertension; E03.9 Hypothyroidism, unspecified; Z88.0 Allergy status to penicillin; Z88.8 Allergy status to other drugs, medicaments and biological substances
CPT/HCPCS: 99283

== ENCOUNTER 2019-02-15 09:39 | Emergency (ER) | payer OTHER ==
--- OUTSIDE RECORDS SUMMARY | 2019-02-15 09:50 | XMS REPORT | Continuity of Care Document ---
[...] 03/26/2018 Medical of 22.0-22.9 in Group adult(<span ID="[id number]" >Confirmed</span> ) Drug therapy Active Problem 03/26/2018 [...] Group extended release cap, 3 Refill(s), Pharmacy: [id number] Levothyroxine 100 Active Sodium 0.1 MG microgram=1 018 Medical Oral Tablet tab, PO, Group [Synthroid] Daily, # 90 tab, 3 Refill(s), Pharmacy: [facility] Allergies, Adverse Reactions, Alerts [...] Source Given Updated influenza virus Left completed [facility] Medical vaccine, 7 Deltoid Group inactivated influenza virus Left completed [facility] Medical vaccine, 6 Deltoid Group inactivated Hx influenza completed [facility] Medical vaccine-unspecif 3 Comment: Group ied<sup>2</sup> given. Migrated from OBS ; Data migrated from [employer] on 12/11/2015. influenza virus Left completed [facility] Medical vaccine, 3 Deltoid Comment: Group inactivated<sup> fluzone high 1</sup> dose [[id number]]. Migrated from OBS ; Data migrated from [employer] on 12/11/2015. pneumococcal Right completed [facility] Medical 23-valent 2 Deltoid Comment: Group vaccine<sup>3</s pneumovax. up> Migrated from OBS VIS: given August 10, 2012. ; Data migrated from [employer] on 12/11/2015. Results Order Name Results Value Reference Date Interpretation Comments Source Range Breast Breast 10/13 - [facility] Mammo Psychiatricn Mammo Scr - [place] ANT incl ANT incl CAD MA CAD MA Read by: Marianela Foy MD Dictated Date/time: 10/13/18 09:52 BILATERAL DIGITAL SCREENING MAMMOGRAM WITH CAD: 10/13/2018 Electronically Signed by: Marianela Foy MD 10/13/18 09 :52 FINAL REPORT CLINICAL: Screening/Screening. Current study was evaluated with a Computer Aided Detection (CAD) system. COMPARISON:Comparison is made to exams dated: 09/28/2017 mammogram, 2015 mammogram, 09/10/2015 mammogram, 08/30/2014 mammogram - [facility], and 08/25/2013 mammogram. TECHNIQUE: Mammographic views were obtained using digital acquisition. Current study was also evaluated with a Computer Aided Detection (CAD) system. FINDINGS: There are scattered fibroglandular densities in both breasts. There are benign vascular calcifications and calcifications in both breasts. No significant masses, calcifications, or other findings are seen in either breast. There has been no significant interval change. IMPRESSION: BENIGN RECOMMENDATION:There is no mammographic evidence of malignancy. A 1 year screening mammogram is recommended.(10/14/2019) This exam was interpreted at [id number] for [facility]. Marianela nolandt/penrad:10/13/2018 09:52:48 Care Mgr(s): Therese Aguilera [facility] letter sent: BI-RADS 1/2 Mammogram BI-RADS: 2 Benign Bone Bone PROCEDURE: DEXA BONE DENSITY STUDY. 10/13 - [facility] [place] DXA Dual DXA Dual Energy MA Energy MA INDICATION: POST MENOPAUSAL. Read by: Michael Sewell MD Dictated Date/time: 10/13/18 09:54 Electronically Signed by: Michael Sewell MD 10/13/18 09:55 FINAL REPORT COMPARISONS: None. TECHNIQUE: Lumbar spine and hip bone mineral densities were measured using a [employer] Discovery A dual x-ray absorptiometry system. FINDINGS: LUMBAR SPINE: L1-L4 average BMD is 1.178 g/cm2 T Score: 0.3; Z score: 3.3 LEFT HIP: Femoral neck BMD: 0.737 g/cm2; T Score: -1.5 Total hip BMD: 0.859 g/cm2; T Score: -1.1 IMPRESSION: 1. Normal bone density of the lumbar spine. 2. Osteopenia of the left femoral neck. 3. Osteopenia of the total left hip. The World Health Organization recently established the following: Osteoporosis occurs at -2.5 SD below peak bone mass. Osteopenia (low bone mass) occurs at -1.0 SD to -2.5 SD below peak bone mass. Low bone mass is the single most accurate predictor for fracture risk. (Peak bone mass occurs at 30 years of age in the axial skeleton (spine) and about 22 years of age in the femoral neck.) SL: [id number] Breast Breast 09/28 - [facility] Mammo Scrn Mammo Scrn - [place] ANT incl ANT incl CAD MA CAD MA Read by: Kelby Haley MD Dictated Date/time: 09/28/17 11:39 BILATERAL DIGITAL SCREENING MAMMOGRAM WITH CAD: 09/28/2017 Electronically Signed by: Kelby Haley MD 09/28/17 11 :39 FINAL REPORT Current study was evaluated with a Computer Aided Detection (CAD) system. COMPARISON:Comparison is made to exams dated: 09/26/2016 mammogram, 2014 mammogram, 08/30/2014 mammogram - [facility], and 08/25/2013 mammogram. TECHNIQUE: Mammographic views [...] is recommended.(09/29/2018) This exam was interpreted at [id number] for [facility] [place]. Kelby Haley M.D. ap/penrad:09/28/2017 11:39:58 Care Mgr(s): Therese Aguilera, [facility] letter sent: BI-RADS 1/2 Mammogram BI-RADS: 2 Benign Digital Digital - DIGITAL MAMMO SCREENING ANT MA 09/26 - [facility] Mammo Mammo /2015 - [place] Screening Screening BILATERAL DIGITAL SCREENING MAMMOGRAM WITH CAD: 2015 Ant MA Ant MA CLINICAL: Screening. Read by: Robert Saucedo MD Dictated Date/time: 10/09/16 14:22 Electronically Signed by: Robert Saucedo MD 10/09/16 14:22 FINAL REPORT Current study was evaluated with a Computer Aided Detection (CAD) system. Comparison is made to exams dated: 09/10/2015 mammogram and 08/30/2014 mammogram - [facility]. There are scattered fibroglandular densities in both breasts. There are benign calcifications in both breasts. No significant masses, calcifications, or other findings are seen in either breast. There has been no significant interval change. IMPRESSION: BENIGN There is no mammographic evidence of malignancy. A 1 year screening mammogram is recommended. Robert Saucedo M.D. sj/penrad:10/09/2016 14:22:03 Care Mgr: Rosario Holt, [facility] This exam was dictated and interpreted by [id number] for [facility]. letter sent: Normal exam Mammogram BI-RADS: 2 Benign Bone Bone EXAM: 08/29 - [facility] DXA Dual DXA Dual Bone densitometry (DEXA). Energy MA Energy MA Read by: Josue Razo MD Dictated Date/time: 08/30/16 09:48 CLINICAL: Electronically Signed by: Josue Razo MD 08/30/16 09:50 FINAL REPORT Routine screening. Additional: ; . Age: 81 years. Gender: Female. Menopausal status: Postmenopausal. TECHNIQUE: Bone mineral density (BMD) analysis was performed. Equipment: [employer] [id number] [id number]. COMPARISON: Bone densitometry: None. FINDINGS: [...] 2 CHEST PA AND LATERAL 08/08 - [facility] views DX views DX /2015 - [place] History: 81-year-old female with hypertension and inguinal [...] DIGITAL MAMMO SCREENING ANT SILVA 09/10 - [facility] Mammo Mammo /2014 - [place] Screening Screening BILATERAL DIGITAL SCREENING MAMMOGRAM WITH CAD: 2014 Ant Cain MA Current study was evaluated with a Computer Aided Detection (CAD) system. Read by: Josue Razo MD Dictated Date/time: 09/11/15 11:14 Comparison is made to exams dated: 08/30/2014 mammogram - [facility] and 08/25/2013 mammogram. Electronically Signed by: [...] 1 year screening mammogram is recommended. Josue puente/penrad:09/11/2015 11:14:41 Care Mgr: Rosario Holt [facility] This exam was dictated and interpreted by [id number] for [facility]. letter sent: Normal exam Mammogram BI-RADS: 2 Benign Vital Signs Vital Sign Value Date Comments Source Weight 70.455 03/23/2018 Medical Group BMI Calculated 23.62 03/23/2018 Medical Group Height 172.72 cm 03/23/2018 Medical Group Respitory [...] Number For Provider Date Date Visit Outpatient [id number] RENATA 09/[address] [facility] [place] Outpatient [id number] MAMMO VISIT 09/10 [facility] [place] Outpatient [id number] MAMMO VISIT 09/10 [facility] [place] Outpatient [id number] XRAY VISIT 08/08 [facility] [place] Outpatient [id number] XRAY VISIT 08/08 [facility] [place] Outpatient [id number] RENATA 08/[address] [facility] Outpatient [id number] ANGELIA 08/22 [facility] [place] Outpatient [id number] RENATA 08/[address] [facility] [place] Outpatient [id number] DEXA VISIT 08/26 [facility] Outpatient [id number] DEXA VISIT 08/29 [facility] Outpatient [id number] DEXA VISIT 08/29 [facility] [place] Outpatient [id number] CARDIO/PULM 08/29 [facility] O VISIT /2015 [facility] Outpatient [id number] MAMMO VISIT 09/22 [facility] Outpatient [id number] MAMMO VISIT 09/26 [facility] Outpatient [id number] MAMMO VISIT 09/26 [facility] [place] Outpatient [id number] RENATA 02/[address] [facility] [place] Outpatient [id number] RENATA 06/[address] [facility] [place] Outpatient [id number] RENATA 09/[address] [facility] [place] Outpatient [id number] MAMMO VISIT 09/28 [facility] Outpatient [id number] MAMMO VISIT 09/28 [id number] Renata 09/28 09/29 [facility] Ambulatory [id number] NURSE VISIT 09/28 09/28 Radiology Pre-Reg /2016 [facility] Outpatient [id number] Renata 09/28 09/29 [facility] /2016 [facility] Out[facility] [id number] DEXA VISIT 03/23 [facility] Outpatient [id number] RENATA 03/[address] [facility] Ambulatory [id number] NURSE VISIT 03/23 03/23 Radiology Pre-Reg /2017 [facility] Outpatient [id number] Renata 03/23 03/24 [facility] Outpatient [id number] RENATA 09/[address] [facility] [place] Outpatient [id number] DEXA VISIT 10/13 [facility] [place] Outpatient [id number] MAMMO VISIT 10/13 [facility] [place] Outpatient [id number] RENATA 10/[address] [facility] Procedures Procedure Code Date Perfomer Comments Source Hysterectomy [id number] Medical Group Laminectomy<sup>1</ [id number] Post op Medical sup> discitis, Group pain, Procedure on [id number] Medical thyroid gland Group
[2019-02-15 11:17] LABS: Urine Blood 1+ (NEG); Urine Glucose NEGATIVE (NEG); Urine Protein NEGATIVE (NEG); Urine pH 5.5 (5.0-7.0)
--- NOTE | 2019-02-15 11:23 | RAD REPORT ---
EXAM DESCRIPTION: RAD - Lumbar Spine 3 Views - 02/15/2019 11:09 am CLINICAL HISTORY: PAIN Radiculopathy COMPARISON: No comparisons FINDINGS: Vertebral body heights appear maintained. No compression fracture noted. Disc thinning is seen throughout the lower lumbar spine. Fusion of the L4 and L5 vertebral bodies is noted with promin ent degenerative change at the level. Cholecystectomy clips. IMPRESSION: No acute lumbar spine abnormality is discerned. Prominent lower lumbar degenerative changes.
[2019-02-15] MEDS ORDERED: KETOROLAC 30 MG/ML INJ ONE (11:33)
--- NOTE | 2019-02-15 11:38 | ER ---
Nurse's Notes [facility] Name: Dinora Gutierrez Age: 83 yrs Sex: Female : 1935 Arrival Date: 02/15/2019 Time: 09:39 Bed 23 Private MD: Diagnosis: Low back pain;Muscle spasm of back Presentation: 02/15 09:51 Presenting complaint: Patient states: right low back pain that began 1 week ago. Pt aa5 states "I do a lot of yard work so maybe I hurt it doing something in the yard". Denies fall. Transition of care: patient was not received from another setting of care. Onset of symptoms was February 2019. Risk Assessment: Do you want to hurt yourself or someone else? Patient reports no desire to harm self or others. Initial Sepsis Screen: Does the patient meet any 2 criteria? No. Patient's initial sepsis screen is negative. Does the patient have a suspected source of infection? No. Patient's initial sepsis screen is negative. Care prior to arrival: None. 09:51 Method Of Arrival: Ambulatory aa5 09:51 Acuity: XAVIER 4 aa5 Historical: - Allergies: 09:52 Lisinopril; aa5 09:52 PENICILLINS; aa5 09:52 zestil; aa5 - PMHx: 09:52 Hypertension; Hypothyroidism; aa5 - Immunization history:: Flu vaccine is up to date. - Social history:: Smoking status: Patient/guardian denies using tobacco, Patient/guardian denies using alcohol, street drugs, The patient lives with family. - Ebola Screening: : No symptoms or risks identified at this time. - Family history:: not pertinent. Screenin:07 Abuse screen: Denies threats or abuse. Denies injuries from another. Nutritional aj1 screening: No deficits noted. Tuberculosis screening: No symptoms or risk factors identified. 11:56 Fall Risk None identified. aj1 Assessment: 10:07 General: Appears in no apparent distress. uncomfortable, Behavior is calm, cooperative, aj1 appropriate for age. Pain: Complains of pain in right mid back Pain does not radiate. Pain currently is 10 out of 10 on a pain scale. Neuro: Level of Consciousness is awake, alert, obeys commands, Oriented to person, place, time, situation, Moves all extremities. Full function. Cardiovascular: Patient's skin is warm and dry. Respiratory: Airway is patent Respiratory effort is even, unlabored, Respiratory pattern is regular, symmetrical. GI: No signs and/or symptoms were reported involving the gastrointestinal system. : No signs and/or symptoms were reported regarding the genitourinary system. EENT: No signs and/or symptoms were reported regarding the EENT system. Derm: No signs and/or symptoms reported regarding the dermatologic system. Skin is pink, warm \\T\\ dry. normal. Musculoskeletal: Circulation, motion, and sensation intact. Range of motion: intact in all extremities. 11:10 Reassessment: Patient appears in no apparent distress at this time. No changes from aj1 previously documented assessment. Patient and/or family updated on plan of care and expected duration. Pain level reassessed. Patient is alert, oriented x 3, equal unlabored respirations, skin warm/dry/pink. 11:58 Reassessment: Patient Rx called into [facility] per patient request. aj1 Vital Signs: 09:52 BP 172 / 93; Pulse 81; Resp 16 S; Temp 98.8(TE); Pulse Ox 98% on R/A; Weight 72.12 kg aa5 (R); Height 5 ft. 10 in. (177.80 cm) (R); Pain 10/10; 09:52 Body Mass Index 22.81 (72.12 kg, 177.80 cm) aa5 ED Course: 09:39 Patient arrived in ED. rg4 09:51 Arm band placed on. aa5 09:52 Triage completed. aa5 10:07 Alka Ball RN is Primary Nurse. aj1 10:07 Patient has correct armband on for positive identification. aj1 10:07 No provider procedures requiring assistance completed. aj1 10:15 Vilma Carpenter MD is Attending Physician. ma2 10:45 Patient moved to radiology via wheelchair. jb2 11:09 X-ray completed. Patient tolerated procedure well. Patient moved back from radiology. jb2 11:09 Lumbar Spine (3 Views) XRAY In Process Unspecified. EDMS 11:56 Patient did not have IV access during this emergency room visit. aj1 12:02 Primary Nurse role handed off by Alka Ball RN aj1 Administered Medications: 11:24 Drug: TORadol 30 mg Route: IM; Site: left deltoid; aj1 11:57 Follow up: Response: No adverse reaction aj1 Outcome: 11:37 Discharge ordered by . alexandro 11:57 Discharged to home ambulatory. aj1 11:57 Condition: good 11:57 Discharge instructions given to patient, Instructed on discharge instructions, follow up and referral plans. no driving heavy equipment, medication usage, Demonstrated understanding of instructions, follow-up care, medications, Prescriptions given X 2. 12:02 Patient left the ED. aj1 12:10 Patient left the ED. aj1 Signatures: Dispatcher [employer] EDAlka Nunn RN RN aj1 Piyush Cerda Audri, RN RN aa5 Julissa Solano4 Vilma Carpenter MD MD ma2
--- NOTE | 2019-02-15 11:38 | EDPHYS ---
Physician Documentation [facility] Name: Dinora Gutierrez Age: 83 yrs Sex: Female : 1935 Arrival Date: 02/15/2019 Time: 09:39 Bed 23 Private MD: ED Physician Vilma Carpenter HPI: 02/15 10:31 This 83 yrs old Black Female presents to ER via Ambulatory with complaints of Back Pain.ma2 10:31 The patient presents with pain that is acute. The symptoms are located in the low back. ma2 Onset: The symptoms/episode began/occurred gradually, 2 day(s) ago. Associated signs and symptoms: Pertinent positives: Pertinent negatives: abdominal pain, chest pain, dysuria, headache, hematuria, incontinence, nausea, numbness, tingling, urinary retention, vomiting, weakness. The problem was sustained when lifting heavy object. Severity of symptoms: At their worst the symptoms were mild, in the emergency department the symptoms are unchanged. The patient has experienced similar episodes in the past. Historical: - Allergies: 09:52 Lisinopril; aa5 09:52 PENICILLINS; aa5 09:52 zestil; aa5 - PMHx: 09:52 Hypertension; Hypothyroidism; aa5 - Immunization history:: Flu vaccine is up to date. - Social history:: Smoking status: Patient/guardian denies using tobacco, Patient/guardian denies using alcohol, street drugs, The patient lives with family. - Ebola Screening: : No symptoms or risks identified at this time. - Family history:: not pertinent. ROS: 10:31 Constitutional: Negative for fever, chills, and weight loss. ma2 10:31 Back: Positive for pain with movement, Negative for injury or acute deformity, decreased range of motion, pain at rest, radiated pain, acute changes. 10:31 All other systems are negative. Exam: 10:31 Constitutional: This is a well developed, well nourished patient who is awake, alert, ma2 and in no acute distress. Chest/axilla: Normal chest wall appearance and motion. Nontender with no deformity. No lesions are appreciated. Cardiovascular: Regular rate and rhythm with a normal S1 and S2. No gallops, murmurs, or rubs. Normal PMI, no JVD. No pulse deficits. Respiratory: Lungs have equal breath sounds bilaterally, clear to auscultation and percussion. No rales, rhonchi or wheezes noted. No increased work of breathing, no retractions or nasal flaring. Abdomen/GI: Soft, non-tender, with normal bowel sounds. No distension or tympany. No guarding or rebound. No evidence of tenderness throughout. Skin: Warm, dry with normal turgor. Normal color with no rashes, no lesions, and no evidence of cellulitis. Neuro: Awake and alert, GCS 15, oriented to person, place, time, and situation. Cranial nerves II-XII grossly intact. Motor strength 5/5 in all extremities. Sensory grossly intact. Cerebellar exam normal. Normal gait. 10:31 MS/ Extremity: Pulses equal, no cyanosis. Neurovascular intact. Full, normal range of motion. 10:31 Back: pain, that is very mild, ROM is normal, normal spinal alignment noted, CVA tenderness, is absent, vertebral tenderness, is not appreciated, muscle spasm, is appreciated in the right mid back, Straight leg raises: 10:31 Musculoskeletal/extremity: ROM: 10:31 Neuro: Sensation: is normal. Vital Signs: 09:52 BP 172 / 93; Pulse 81; Resp 16 S; Temp 98.8(TE); Pulse Ox 98% on R/A; Weight 72.12 kg aa5 (R); Height 5 ft. 10 in. (177.80 cm) (R); Pain 10; 09:52 Body Mass Index 22.81 (72.12 kg, 177.80 cm) aa5 MDM: 10:16 Patient medically screened. ma2 10:31 Differential diagnosis: arthritis, Fatigue sprain. Data reviewed: vital signs, nurses ma2 notes. Counseling: I had a detailed discussion with the patient and/or guardian regarding: the historical points, exam findings, and any diagnostic results supporting the discharge/admit diagnosis, the presence of at least one elevated blood pressure reading (>120/80) during this emergency department visit, the need for outpatient follow up. Response to treatment:. 11:37 Response to treatment: the patient's symptoms have resolved after treatment. ma2 02/15 10:43 Order name: Urine Dipstick--Ancillary (enter results); Complete Time: 11:37 bd 02/15 10:30 Order name: Lumbar Spine (3 Views) XRAY; Complete Time: 11:37 ma2 02/15 10:30 Order name: Urine Dipstick-Ancillary (obtain specimen); Complete Time: 10:49 ma2 Administered Medications: 11:24 Drug: TORadol 30 mg Route: IM; Site: left deltoid; aj1 11:57 Follow up: Response: No adverse reaction aj1 Disposition: 02/15/19 11:37 Discharged to Home. Impression: Low back pain, Muscle spasm of back. - Condition is Stable. - Discharge Instructions: Back Pain, Adult, Musculoskeletal Pain. - Prescriptions for Cyclobenzaprine 10 mg Oral Tablet - take 1 tablet by ORAL route every 8 hours As needed; 30 tablet. Tramadol 50 mg Oral Tablet - take 1 tablet by ORAL route every 8 hours as needed; 12 tablet. - Medication Reconciliation Form, Thank You Letter, Antibiotic Education, Prescription Opioid Use form. - Follow up: Private Physician; When: Tomorrow; Reason: Recheck today's complaints, Continuance of care. Signatures: Dispatcher [facility] CenterAlka Nunn RN RN aj1 Radha Nascimento RN RN aa5 Vilma Carpenter MD MD ma2 Corrections: (The following items were deleted from the chart) 11:38 11:37 02/15/2019 11:37 Discharged to Home. Impression: Low back pain. Condition is ma2 Stable. Prescriptions for Cyclobenzaprine 10 mg Oral Tablet - take 1 tablet by ORAL route every 8 hours As needed; 30 tablet, Tramadol 50 mg Oral Tablet - take 1 tablet by ORAL route every 8 hours as needed; 12 tablet. and Forms are Medication Reconciliation Form, Thank You Letter, Antibiotic Education, Prescription Opioid Use. Follow up: Private Physician; When: Tomorrow; Reason: Recheck today's complaints, Continuance of care. ma2 12:02 11:38 02/15/2019 11:37 Discharged to Home. Impression: Low back pain; Muscle spasm of aj1 back. Condition is Stable. Prescriptions for Cyclobenzaprine 10 mg Oral Tablet - take 1 tablet by ORAL route every 8 hours As needed; 30 tablet, Tramadol 50 mg Oral Tablet - take 1 tablet by ORAL route every 8 hours as needed; 12 tablet. and Forms are Medication Reconciliation Form, Thank You Letter, Antibiotic Education, Prescription Opioid Use. Follow up: Private Physician; When: Tomorrow; Reason: Recheck today's complaints, Continuance of care. ma2 12:10 12:02 02/15/2019 11:37 Discharged to Home. Impression: Low back pain; Muscle spasm of aj1 back. Condition is Stable. Discharge Instructions: Back Pain, Adult, Musculoskeletal Pain. Prescriptions for Cyclobenzaprine 10 mg Oral Tablet - take 1 tablet by ORAL route every 8 hours As needed; 30 tablet, Tramadol 50 mg Oral Tablet - take 1 tablet by ORAL route every 8 hours as needed; 12 tablet. and Forms are Medication Reconciliation Form, Thank You Letter, Antibiotic Education, Prescription Opioid Use. Follow up: Private Physician; When: Tomorrow; Reason: Recheck today's complaints, Continuance of care. aj1
== END 2019-02-15 12:10 | disposition home or self-care (01) ==
LOC: ER 09:39
DX: M54.5 Low back pain (principal); M62.830 Muscle spasm of back; I10 Essential (primary) hypertension; E03.9 Hypothyroidism, unspecified; Z88.0 Allergy status to penicillin; Z88.8 Allergy status to other drugs, medicaments and biological substances
CPT/HCPCS: 72100; 81003; 96372; 99283

== ENCOUNTER 2020-08-22 12:34 | Emergency (ER) | payer OTHER ==
--- OUTSIDE RECORDS SUMMARY | 2020-08-22 12:36 | XMS REPORT | Continuity of Care Document ---
:1935 Author Organization [employer] Care Team Providers Name Role Phone Pelago Unavailable Un available Problems Problem Status Onset Classification Date Comments Sourc e Date Reported Lichen sclerosus et Active Problem 01/08/2020 Data atrophicus (disorder) 014 migrated Medical from [employer] on 04/07/15. Pain in lower limb Active Problem 01/08/2020 Data MH (finding) 014 migrated Medical from [employer] [facility] on 04/07/15. Inguinal pain (finding) Active Problem 01/08/2020 Data 013 migrated Medical from [employer] [facility] on 04/07/15. Body mass index 20-24 - Active Problem 01/08/2020 normal (finding) Med ical Group Drug therapy finding Active Problem 01/08/2020 MH (finding) Medical Group Hypertensive disorder, Active Problem 01/08/2020 Data systemic arterial migrated Me dical (disorder) from [employer] [facility] on 04/07/15. 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) Medical Group Menopausal and Active Problem 01/08/2020 postmenopausal disorders Medical (disorder) Group Medications Medication Details Route Status Patient Ordering Order Source Instructions Provider Date Clobetasol 1 appl, TOP, Active Propionate BID, # 45 018 Medical 0.0005 MG/MG gm, 0 Group Topical Ointment Refill(s), Pharmacy: [facility] 24 HR Diltiazem See Active MH Hydrochloride Instructions 018 Medic al 300 MG Extended , TAKE ONE Group Release Capsule CAPSULE BY [Cartia] MOUTH ONCE DAILY, # 90 cap, 3 Refill(s), Pharmacy: [facility]08 levothyroxine See Active MH 100 mcg (0.1 mg) Instructions 018 Me dical oral tablet , TAKE ONE Group TABLET BY MOUTH ONCE DAILY, # 90 tab, 3 Refill(s), Pharmacy: [facility] Doxazosin 1 MG 1 mg = 1 Active MH Oral Tablet tab, PO, 018 Medical [Cardura] Daily, take Group first three doses at bedtime., # 90 tab, 3 Refill(s), Pharmacy: [facility]08 Clobetasol 1 appl, TOP, Active MH Propionate BID, # 45 018 Medical 0.0005 MG/MG gm, 0 Group Topical Ointment Refill(s) diltiazem 300 300 mg = 1 Active MH mg/24 hours oral cap, PO, 018 Medica l capsule, Daily, # 90 Group extended release cap, 3 Refill(s), Pharmacy: [facility]246 Levothyroxine 100 Active MH Sodium 0.1 MG microgram = 018 Medica l Oral Tablet 1 tab, PO, Group [Synthroid] Daily, # 90 tab, 3 Refill(s), Pharmacy: [facility] Allergies, Adverse Reactions, Alerts Substance Category Reaction Severity Reaction Status Date Comments S ource type Reported meloxicam<s Assertion Drug Active Data lenard rated from [employer] on 03/08/15. Originally documented as MOBIC. MH up>3, allergy 4 Data migrated fr om [employer] [facility] on 03/08/15. Originally documented as MELOXICAM. Medical 4</sup> Group penicillins Assertion Drug Active Data MH <sup>1</sup allergy migrated Med ical > from [employer] [facility] on 06/07/15. Originally documented as PENICILLIN. lisinopril< Assertion Drug Active Data MH sup>2</sup> allergy migrated Med ical from [employer] [facility] on 03/08/15. Originally documented as ZESTRIL. Immunizations Immunization Date Site Status Last Comments Source Given Updated influenza virus Left completed [facility] M edical vaccine, 8 [facility] Group inactivated influenza virus Left completed [facility] M edical vaccine, 7 Delto[facility] Group inactivated influenza virus Left completed [facility] M edical vaccine, 6 Delto[facility] Group inactivated Hx influenza completed GE Result Medi edgardo vaccine-unspecif 3 Comment: Deejay up ied<sup>2</sup> given. Migrated from OBS ; Data migrated from [employer] on 12/11/2015. influenza virus Left completed [facility] Result M edical vaccine, 3 Deltoid Comment: Group inactivated<sup> fluzone high 1</sup> dose [[id number]]. Migrated from OBS ; Data migrated from [employer] on 12/11/2015. pneumococcal Right completed GE Result Medi edgardo 23-valent 2 Deltoid Comment: Group vaccine<sup>3</s pneumovax. up> Migrated from OBS VIS: given August 10, 2012. ; Data migrated from [employer] on 12/11/2015. Results No Data Provided for This Section Pathology Reports No Data Provided for This Section Diagnostic Reports Report Value Date Source Breast Mammo Scrn ANT 01/04/2020 [facility] incl CAD MA BILATERAL DIGITAL SCREENING MAMMOGRAM WITH CAD: 01/04/2020 CLINICAL: Screening/Screening. Current study was evaluated with a Auto Body Estimator d Detection (CAD) system. COMPARISON:Comparison is mad e to exams dated: 10/13/2018 mammogram, 09/28/2017 mammogram, 09/26/2016 mammogram, and 09/10/2015 mammogram - [facility]. TECHNIQUE: Mammographic view s were obtained using digital acquisition. Current study was also evaluated with a Computer Aided Detection (CAD) system. FINDINGS: There are scattered fibroglandular densities in both breasts. Benign appearing asymmetries are noted in both b reasts. There are benign vascular calcifications and edgardo cifications in both breasts. No significant masses, calci fications, or other findings are seen in either breast. There has been no significant interval change. IMPRESSION: BENIGN RECOMMENDATION:There is no m ammographic evidence of malignancy. A 1 year screening mammogram is recommended.(01/04/2021) This exam was interpreted at [id number] for [facility]. Marianela dove/penrad:01/04/2020 10:39:48 Allied Health Teacher(s): Kaylee Aguilera, [facility] letter sent: BI-RADS 1/2 Mammogram BI-RADS: 2 Benign Breast Mammo Scrn ANT 10/13/2018 [facility] CAD MA BILATERAL DIGITAL SCREENING MAMMOGRAM WITH CAD: 10/13/2018 CLINICAL: Screening/Screening. Current study was evaluated with a Auto Body Estimator d Detection (CAD) system. COMPARISON:Comparison is mad e to exams dated: 09/28/2017 mammogram, 09/26/2016 mammogram, 09/10/2015 mammogram, 08/30/2014 mammogram - [facility], and 08/25/2013 mammogram. TECHNIQUE: Mammographic view s were obtained using digital acquisition. Current study was also evaluated with a Computer Aided Detection (CAD) system. FINDINGS: There are scattered fibroglandular densities in both breasts. There are benign vascular calcifications and edgardo cifications in both breasts. No significant masses, calci fications, or other findings are seen in either breast. There has been no significant interval change. IMPRESSION: BENIGN RECOMMENDATION:There is no m ammographic evidence of malignancy. A 1 year screening mammogram is recommended.(10/14/2019) This exam was interpreted at [id number] for [facility]. Marianela dove/penrad:10/13/2018 09:52:48 Allied Health Teacher(s): Kaylee Aguilera, [facility] letter sent: BI-RADS 1/2 Mammogram BI-RADS: 2 Benign Bone Density DXA Dual PROCEDURE: DEXA BONE DENSITY STUDY. 2017 [facility] INDICATION: POST MENOPAUSAL. COMPARISONS: None. TECHNIQUE: Lumbar spine and hip bone mineral densities were measured using a [employer] Discovery A dual x-ray absorptiometry system. FINDINGS: [...] left hip. The World Health Organization recently establish ed the following: Osteoporosis occurs at -2.5 SD below peak bone m ass. Osteopenia (low bone mass) occurs at -1.0 SD to -2.5 SD below peak bone mass. Low bone mass is the single most accurate predic tor for fracture risk. (Peak bone mass occurs at 30 years of age in the axial skeleton (spine) and about 22 years of age in the femoral neck.) SL: [id number] Breast Mammo Scrn ANT 09/28/2017 [facility] incl CAD MA BILATERAL DIGITAL SCREENING MAMMOGRAM WITH CAD: 09/28/2017 Current study was evaluated with a Auto Body Estimator d Detection (CAD) system. COMPARISON:Comparison is mad e to exams dated: 09/26/2016 mammogram, 09/10/2015 mammogram, 08/30/2014 mammogram - [facility], and 08/25/2013 mammogram. TECHNIQUE: Mammographic view s were obtained using digital acquisition. Current study was also evaluated with a Computer Aided Detection (CAD) system. There are scattered fibroglandular densities in both breasts. FINDINGS: There are benign calcifications in both breasts. No significant masses, calci fications, or other findings are seen in either breast. There has been no significant interval change. IMPRESSION: BENIGN RECOMMENDATION:There is no m ammographic evidence of malignancy. A 1 year screening mammogram is recommended.(09/29/2018) This exam was interpreted at [id number] for [facility] [place]. Kelby alves/penrad:09/28/2017 11:39:58 Allied Health Teacher(s): Kaylee Aguilera, [facility] letter sent: BI-RADS 1/2 Mammogram BI-RADS: 2 Benign Digital Mammo - DIGITAL MAMMO SCREENING ANT MA 09/26/2016 [facility] Screening Ant [place] BILATERAL DIGITAL SCREENING MAMMOGRAM WITH CAD: 09/26/2016 CLINICAL: Screening. Current study was evaluated with a Auto Body Estimator d Detection (CAD) system. Comparison is made to exams dated: 09/10/2015 mammogram and 08/30/2014 mammogram - [facility]. There are scattered fibroglandular densities in both breasts. There are benign calcifications in both breasts. No significant masses, calci fications, or other findings are seen in either breast. There has been no significant interval change. IMPRESSION: BENIGN There is no mammographic dayna dence of malignancy. A 1 year screening mammogram is recommended. Robert crawford/yeni:10/09/2016 14:22:03 Allied Health Teacher: Trice Holt, [facility] This exam was dictated and i nterpreted by [id number] for [facility]. letter sent: Normal exam Mammogram BI-RADS: 2 Benign Bone Density DXA Dual EXAM: 08/29/2016 [facility] Energy MA Bone densitometry (DEXA). CLINICAL: Routine screening. Additional: ; . Age: 81 years. Gender: Female. Menopausal status: Postmenopausal. TECHNIQUE: Bone mineral density (BMD) analysis was performe d. Equipment: [employer] QDR [id number]. COMPARISON: Bone densitometry: None. FINDINGS: L1-L4 Vertebra: BMD: 1.179. T score: 0.3. WHO criteria valuation for this b joss part is normal. Left Femoral Neck: BMD: 0.805. T score: -1. WHO criteria valuation for this chasity dy part is normal. Left Hip: BMD: 0.916. T score: -0.7. WHO criteria valuation for this body part is normal. IMPRESSION: 1. BMD valuation by WHO criteria is normal. Note: World Health Organization (WHO) Criteria: 1. For postmenopausal/perime nopausal females and males >/=50 years old, T scores (standard deviations above or below the gender-matched young-adult mean) are used. a. T score >/= -1 is 'normal.' b. T score -1 to -2.5 is 'osteopenia.' c. T score </= -2.5 is 'osteoporosis.' 2. For premenopausal females and males <50 years old, Z scores (standard deviations above or below the gender-matched and age-matched mean) are used. a. Z score > -2 is 'within the expected range fo r age.' b. Z score </= -2 is 'below the expected range f or age.' 3. When appropriate, a medic al evaluation for secondary causes of low BMD may be considered. Chest 2 views DX CHEST PA AND LATERAL 08/08/2016 [facility] History: 81-year-old female with hypertension an d inguinal adenopathy. Comparison: None. Findings: Lungs: The lungs are hyper e xpanded without an infiltrate, consolidation or nodule. Pleura: No pleural effusion. Mediastinum and bonilla: Unremarkable with calcific ations along the aortic arch. Heart size: Normal. Skeletal: Unremarkable. IMPRESSION: Hyperexpanded lungs. There is no acute cardio pulmonary abnormality. Digital Mammo - DIGITAL MAMMO SCREENING [facility] 09/10/2015 [facility] Screening [facility] BILATERAL DIGITAL SCREENING MAMMOGRAM WITH CAD: 09/10/2015 Current study was evaluated with a Auto Body Estimator d Detection (CAD) system. Comparison is made to exams dated: 08/30/2014 mammogram - [facility] and 08/25/2013 mammogram. There are scattered fibroglandular densities in both breasts. There are benign calcifications in both breasts. No significant masses, calci fications, or other findings are seen in either breast. There has been no significant interval change. IMPRESSION: BENIGN There is no mammographic dayna dence of malignancy. A 1 year screening mammogram is recommended. Josue puente/yeni:09/11/2015 11:14:41 Allied Health Teacher: Trice Holt, [facility] This exam was dictated and i nterpreted by [id number] for [facility]. letter sent: Normal exam Mammogram BI-RADS: 2 Benign Consultation Notes No Data Provided for This Section Discharge Summaries No Data Provided for This Section History and Physicals No Data Provided for This Section Vital Signs Vital Sign Value Date Comments Source Systolic (mm Hg) 140 10/13/2018 Medical Group Diastolic (mm Hg) 72 10/13/2018 Medical Group Heart Rate 60 10/13/2018 Medical Grou p Temperature Oral (F) 97.7 F 10/13/2018 [facility] edgardo Group Respitory Rate 14 10/13/2018 Medical Gr oup Weight 69.545 10/13/2018 Medical Grou p Weight 69.545 09/03/2018 Medical Grou p Respitory Rate 14 09/03/2018 Medical Gr oup Temperature Oral (F) 98 F 09/03/2018 Medi edgardo Group Heart Rate 60 09/03/2018 Medical Grou p Systolic (mm Hg) 154 09/03/2018 Medical Group Diastolic (mm Hg) 90 09/03/2018 Medical Group Weight 70.455 03/23/2018 Medical Grou p BMI Calculated 23.62 03/23/2018 Medical Gr oup Height 172.72 cm 03/23/2018 Medical Grou p Respitory Rate 14 03/23/2018 Medical Gr oup Temperature Oral (F) 98.8 F 03/23/2018 Medi edgardo Group Heart Rate 60 03/23/2018 Medical Grou p Systolic (mm Hg) 160 03/23/2018 Medical Group Diastolic (mm Hg) 90 03/23/2018 Medical Group Height 173.99 cm 09/28/2017 Medical Grou p BMI Calculated 23.42 09/28/2017 Medical Gr oup Weight 70.909 09/28/2017 Medical Grou p Systolic (mm Hg) 140 09/28/2017 Medical Group Diastolic (mm Hg) 80 09/28/2017 Medical Group Temperature Oral (F) 98.3 F 09/28/2017 Medi edgardo Group Respitory Rate 15 09/28/2017 Medical Gr oup Heart Rate 68 09/28/2017 Medical Grou p Encounters Location Location Encounter Encounter Reason Attending ADM NM Stat Source Details Type Number For Provider Date Date Visit Outpatient [id number] RENATA 09/10 [facility] Outpatient [id number] MAMMO VISIT 09/10 [facility] [place] Outpatient [id number] MAMMO VISIT 09/10 [facility] Outpatient [id number] XRAY VISIT 08/08 [facility] [place] Outpatient [id number] XRAY VISIT 08/08 [facility] Outpatient [id number] RENATA 08/08 [facility] Outpatient [id number] ANGELIA 08/22 [facility] [id number] [facility]22 [facility] [id number] DEXA VISIT 08/26 [facility] Outpatient [id number] DEXA VISIT 08/29 [facility] [place] Outpatient [id number] DEXA VISIT 08/29 [facility] Outpatient [id number] CARDIO/PULM 08/29 [facility] Out[facility] [id number] MAMMO VISIT 09/22 [facility] Outpatient [id number] MAMMO VISIT 09/26 [facility] [place] Out[facility] [id number] MAMMO VISIT 09/26 [facility] Outpatient [id number] RENATA 02/20 [facility] Outpatient [id number] RENATA 06/19 [facility] Outpatient [id number] RENATA 09/28 [facility] Outpatient [id number] MAMMO VISIT 09/28 [facility] [place] Outpatient [id number] MAMMO VISIT 09/28 [facility] [place] [facility] Outpatient [id number] Renata 09/28 09/29 [facility] /2016 [facility] Ambulatory [id number] NURSE VISIT 09/28 09/28 Radiology Pre-Reg /2016 [facility]ica l [facility] Outpatient [id number] Renata 09/28 09/29 [facility] /2016 [facility] [place] Outpatient [id number] DEXA VISIT 03/23 [facility] [facility]la [facility] Outpatient [id number] RENATA 03/23 [facility] [place] [facility] Ambulatory [id number] NURSE VISIT 03/23 03/23 Radiology Pre-Reg /2017 [facility]ica l [facility] Outpatient [id number] Renata 03/23 03/24 [facility] /2017 [facility] [place] Outpatient [id number] RENATA 09/03 [facility] Outpatient [id number] Renata 09/03 09/04 [facility] Outpatient [id number] DEXA VISIT 10/13 Act car[facility] Outpatient [id number] MAMMO VISIT 10/13 [facility] Outpatient [id number] RENATA 10/13 [facility] MG Phone [id number] 10/13 10/15 Family Message /2017 [facility] [place] [facility] Outpatient [id number] NURSE VISIT 10/13 10/14 Radiology /2017 [facility] Outpatient [id number] NURSE VISIT 10/13 10/14 [facility] [place] MG Outpatient [id number] Renata 10/13 10/14 [facility] MG Phone [id number] 12/19 12/21 Family Message /2019 [facility] [place] Outpatient [id number] NURSE VISIT 01/04 [facility] [place] MG Outpatient [id number] NURSE VISIT 01/04 01/05 Radiology /2019 [facility] [place] [facility] Between [id number] 01/05 01/06 Family Visit /2019 [facility] [place] Procedures Procedure Code Date Perfomer Comments Source Hysterectomy [id number] Medical Group Laminectomy<sup>1</ [id number] Post op Me dical sup> discitis, Group pain, Procedure on [id number] Medical thyroid gland Group Assessment and Plan No Data Provided for This Section Plan of Care No Data Provided for This Section Social History Social History Date Source Social History TypeResponse 09/10/2015 Medical G roup Alcohol Never 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 Highest education level: High school. Exercise Exercise frequency: 5-6 times/week. Exercise type: Walking. Substance Abuse Use: None. Smoking Status Never smoker; Exposure to Tobacco Smoke None; Cigarette Smoking Last 365 Days No; Reg Smoking Cessation Counseling No entered on: 10/13/18 Family History No Data Provided for This Section Advance Directives No Data Provided for This Section Functional Status No Data Provided for This Section
[2020-08-22 13:49] LABS: Absolute Lymphocytes (CBC) 1.8 K/uL (0.7-4.9); Basophils % 1.3 % (0-1.3); Lymphocytes % 36.9 % (15.3-44.8); MPV 9.3 fL (7.6-11.3); RBC Red Blood Cell Count 3.91 M/uL (3.86-4.86)
--- NOTE | 2020-08-22 13:51 | RAD REPORT ---
EXAM DESCRIPTION: CT - Head Brain Wo Cont - 08/22/2020 1:42 pm CLINICAL HISTORY: DIZZINESS, history of aneurysm repair COMPARISON: MRI BRAIN W WO CONTRAST dated 06/12/2009 TECHNIQUE: Axial 5 mm thick images of the head were obtained without IV contrast. All CT scans are performed using dose optimization technique as appropriate and may include automated exposure control or mA/KV adjustment according to patient size. FINDINGS: No intracranial hemorrhage, mass, edema or shift of mid-line structures. No acute infarcti on changes seen. No cortical edema or sulcal effacement. Atrophy changes are mild for age. Ventricles are in proportion to the volume loss. Patient has minimal cerebral chronic ischemic change. There is focal encephalomalacia in the right temporal lobe and posteroinferior right frontal lobe. Craniectom y changes are present in the right temporal bone with craniotomy changes involving the rib right fron josé miguel bone and superior aspect of the temporal bone. . No aneurysm clip or coil identified. Physiologic calcifications are present. Mastoid air cells and visualized portions of the paranasal sinuses are clear. No acute bony findings. IMPRESSION: Patient has minimal atrophy and chronic ischemic change for age. Ventricles are in propo rtion to any volume loss. Right temporal and inferior right frontal encephalomalacia changes are present along with postsurgica l changes to the adjacent skull. This would match the history of aneurysm surgery.
[2020-08-22 14:01] LABS: Potassium 3.9 mmol/L (3.5-5.1)
--- NOTE | 2020-08-22 14:11 | EDPHYS ---
Physician Documentation [facility] Name: Dinora Gutierrez Age: 85 yrs Sex: Female : 1935 Arrival Date: 08/22/2020 Time: 12:37 Bed 15 Private MD: ED Physician Harish Mariee HPI: 08/22 14:15 This 85 yrs old Black Female presents to ER via Ambulatory with complaints of Dizziness.jr8 14:15 The patient presents with lightheadedness, feeling off balance. Onset: The jr8 symptoms/episode began/occurred gradually, 2 day(s) ago. Context: occurred at home, occurred while the patient was standing, just prior to the episode the patient experienced no apparent symptoms. Modifying factors: The symptoms are alleviated by nothing, the symptoms are aggravated by standing up. Associated signs and symptoms: The patient has no apparent associated signs or symptoms. Severity of symptoms: At their worst the symptoms were mild in the emergency department the symptoms have resolved. Patient's baseline: Neuro: alert and fully oriented, Motor: no deficits, Ambulation: walks with assist only, uses cane, Speech: normal. The patient has not experienced similar symptoms in the past. The patient has not recently seen a physician. Patient stated that she has had a couple episodes of dizziness over the last couple of days that are short lived but was concerning her. Came to be evaluated for dizziness since it happened again earlier today . Historical: - Allergies: 12:50 Lisinopril; ca1 12:50 PENICILLINS; ca1 12:50 zestil; ca1 - Home Meds: 12:50 Cartia XT 300 mg Oral cp24 1 cap once daily [Active]; levothyroxine 100 mcg tab 1 tab ca1 once daily [Active]; - PMHx: 12:50 Hypertension; Hypothyroidism; ca1 - PSHx: 12:50 Hysterectomy; Brain Surgery; ca1 - Immunization history:: Adult Immunizations up to date, Pneumococcal vaccine is not up to date, Flu vaccine is not up to date. - Social history:: Smoking status: Patient denies any tobacco usage or history of. ROS: 14:15 Eyes: Negative for injury, pain, redness, and discharge, ENT: Negative for injury, jr8 pain, and discharge, Neck: Negative for injury, pain, and swelling, Cardiovascular: Negative for chest pain, palpitations, and edema, Respiratory: Negative for shortness of breath, cough, wheezing, and pleuritic chest pain, Abdomen/GI: Negative for abdominal pain, nausea, vomiting, diarrhea, and constipation, Back: Negative for injury and pain, MS/Extremity: Negative for injury and deformity, Skin: Negative for injury, rash, and discoloration. 14:15 Neuro: Positive for gait disturbance. Exam: 14:15 Eyes: Pupils equal round and reactive to light, extra-ocular motions intact. Lids and jr8 lashes normal. Conjunctiva and sclera are non-icteric and not injected. Cornea within normal limits. Periorbital areas with no swelling, redness, or edema. ENT: Nares patent. No nasal discharge, no septal abnormalities noted. Tympanic membranes are normal and external auditory canals are clear. Oropharynx with no redness, swelling, or masses, exudates, or evidence of obstruction, uvula midline. Mucous membranes moist. Neck: Trachea midline, no thyromegaly or masses palpated, and no cervical lymphadenopathy. Supple, full range of motion without nuchal rigidity, or vertebral point tenderness. No Meningismus. Cardiovascular: Regular rate and rhythm with a normal S1 and S2. No gallops, murmurs, or rubs. Normal PMI, no JVD. No pulse deficits. Respiratory: Lungs have equal breath sounds bilaterally, clear to auscultation and percussion. No rales, rhonchi or wheezes noted. No increased work of breathing, no retractions or nasal flaring. Abdomen/GI: Soft, non-tender, with normal bowel sounds. No distension or tympany. No guarding or rebound. No evidence of tenderness throughout. Back: No spinal tenderness. No costovertebral tenderness. Full range of motion. Skin: Warm, dry with normal turgor. Normal color with no rashes, no lesions, and no evidence of cellulitis. MS/ Extremity: Pulses equal, no cyanosis. Neurovascular intact. Full, normal range of motion. Neuro: Awake and alert, GCS 15, oriented to person, place, time, and situation. Cranial nerves II-XII grossly intact. Motor strength 5/5 in all extremities. Sensory grossly intact. Cerebellar exam normal Vital Signs: 12:43 BP 156 / 83; Pulse 76; Resp 15 S; Temp 98.1(TE); Pulse Ox 100% on R/A; Weight 63.5 kg ca1 (R); Height 5 ft. 8 in. (172.72 cm) (R); Pain 0/10; 13:57 BP 164 / 72 LA Supine; Pulse 72; ss 13:57 BP 146 / 72 Sitting; Pulse 69; ss 13:57 BP 157 / 79 Standing; Pulse 70; Resp 16; Pulse Ox 100% on R/A; Pain 0/10; ss 12:43 Body Mass Index 21.29 (63.50 kg, 172.72 cm) ca1 MDM: 13:12 Patient medically screened. jr8 14:09 Data reviewed: vital signs, nurses notes, lab test result(s), EKG, radiologic studies, jr8 CT scan. Data interpreted: Pulse oximetry: on room air is 100 %. Interpretation: normal. Counseling: I had a detailed discussion with the patient and/or guardian regarding: the historical points, exam findings, and any diagnostic results supporting the discharge/admit diagnosis, lab results, radiology results, the need for outpatient follow up, a family practitioner, to return to the emergency department if symptoms worsen or persist or if there are any questions or concerns that arise at home. 08/22 13:21 Order name: CBC with Diff 8 08/22 13:21 Order name: Basic Metabolic Panel; Complete Time: 14:04 jr8 08/22 13:21 Order name: EKG - Nurse/Tech; Complete Time: 13:21 jr8 08/22 13:21 Order name: Orthostatics; Complete Time: 13:56 jr8 08/22 13:21 Order name: CT Head Brain wo Cont; Complete Time: 13:54 jr8 08/22 13:21 Order name: Glucose Level; Complete Time: 13:33 jr8 Administered Medications: No medications were administered Disposition: 14:49 Co-signature as Attending Physician, Harish Mariee MD I agree with the assessment and kdr plan of care. Disposition: 08/22/20 14:10 Discharged to Home. Impression: Dizziness . - Condition is Stable. - Discharge Instructions: Dizziness. - Medication Reconciliation Form, Thank You Letter, Antibiotic Education, Prescription Opioid Use form. - Follow up: Private Physician; When: 2 - 3 days; Reason: Recheck today's complaints, Continuance of care, Re-evaluation by your physician. - Problem is new. - Symptoms have improved. Signatures: Dispatcher [employer] EDMS Harish Mariee MD MD [facility] Farzaneh Ace RN RN Eliel Castorena PA PA jr8 Tana Pelletier RN RN ca1 Corrections: (The following items were deleted from the chart) 14:15 13:21 IV Saline Lock ordered. 8 14:15 14:05 Urine Dipstick-Ancillary ordered. 8 14:32 14:10 08/22/2020 14:10 Discharged to Home. Impression: Dizziness . Condition is Stable. ss Forms are Medication Reconciliation Form, Thank You Letter, Antibiotic Education, Prescription Opioid Use. Follow up: Private Physician; When: 2 - 3 days; Reason: Recheck today's complaints, Continuance of care, Re-evaluation by your physician. Problem is new. Symptoms have improved. jr8
--- NOTE | 2020-08-22 14:11 | ER ---
Nurse's Notes [facility] Name: Dinora Gutierrez Age: 85 yrs Sex: Female : 1935 Arrival Date: 08/22/2020 Time: 12:37 Bed 15 Private MD: Diagnosis: Dizziness Presentation: 08/22 12:43 Chief complaint: Patient states: I need my BP check and blood checked. I got dizzy ca1 spells for twice now. Had one 2 days ago that I thought I was going to fall, then 1 this morning but was just dizzy did not have that falling feeling. Denies headache. Denies pain. Denies nausea. Coronavirus screen: Client denies travel out of the [place] in the last 14 days. At this time, the client does not indicate any symptoms associated with coronavirus-19. Ebola Screen: Patient negative for fever greater than or equal to 101.5 degrees Fahrenheit, and additional compatible Ebola Virus Disease symptoms Patient denies exposure to infectious person. Patient denies travel to an Ebola-affected area in the 21 days before illness onset. No symptoms or risks identified at this time. Initial Sepsis Screen: Does the patient meet any 2 criteria? No. Patient's initial sepsis screen is negative. Does the patient have a suspected source of infection? No. Patient's initial sepsis screen is negative. Risk Assessment: Do you want to hurt yourself or someone else? Patient reports no desire to harm self or others. Onset of symptoms was August 22, 2020. 12:43 Method Of Arrival: Ambulatory ca1 12:43 Acuity: XAVIER 3 ca1 Historical: - Allergies: 12:50 Lisinopril; ca1 12:50 PENICILLINS; ca1 12:50 zestil; ca1 - Home Meds: 12:50 Cartia XT 300 mg Oral cp24 1 cap once daily [Active]; levothyroxine 100 mcg tab 1 tab ca1 once daily [Active]; - PMHx: 12:50 Hypertension; Hypothyroidism; ca1 - PSHx: 12:50 Hysterectomy; Brain Surgery; ca1 - Immunization history:: Adult Immunizations up to date, Pneumococcal vaccine is not up to date, Flu vaccine is not up to date. - Social history:: Smoking status: Patient denies any tobacco usage or history of. Screenin:15 Abuse screen: Denies threats or abuse. Denies injuries from another. Nutritional ss screening: No deficits noted. Tuberculosis screening: Never had TB. Fall Risk None identified. Assessment: 13:15 General: Appears in no apparent distress. comfortable, Behavior is calm, cooperative. ss Pain: Denies pain. Neuro: Level of Consciousness is awake, alert, obeys commands, Oriented to person, place, time, situation. Neuro: Reports 2 episodes of dizziness. 1 episode that began yesterday and 1 today. . Cardiovascular: Capillary refill < 3 seconds is brisk in bilateral fingers. Respiratory: Airway is patent Respiratory effort is even, unlabored, Respiratory pattern is regular, symmetrical. GI: Patient currently denies abdominal pain, diarrhea, nausea, vomiting. : No signs and/or symptoms were reported regarding the genitourinary system. Denies burning with urination, urinary frequency. EENT: Oral mucosa is moist. Derm: Skin is intact, is healthy with good turgor, Skin is dry, Skin is pink, warm \T\ dry. normal. Vital Signs: 12:43 BP 156 / 83; Pulse 76; Resp 15 S; Temp 98.1(TE); Pulse Ox 100% on R/A; Weight 63.5 kg ca1 (R); Height 5 ft. 8 in. (172.72 cm) (R); Pain 0/10; 13:57 BP 164 / 72 LA Supine; Pulse 72; ss 13:57 BP 146 / 72 Sitting; Pulse 69; ss 13:57 BP 157 / 79 Standing; Pulse 70; Resp 16; Pulse Ox 100% on R/A; Pain 0/10; ss 12:43 Body Mass Index 21.29 (63.50 kg, 172.72 cm) ca1 ED Course: 12:37 Patient arrived in ED. mr 12:48 Triage completed. ca1 12:50 Arm band placed on right wrist. ca1 12:53 Farzaneh Ace, LEDA is Primary Nurse. ss 13:05 Eliel Castorena PA is PHCP. jr8 13:05 Harish Mariee MD is Attending Physician. jr8 13:15 Patient has correct armband on for positive identification. Bed in low position. 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 Pulse ox on. NIBP on. 13:41 CT Head Brain wo Cont In Process Unspecified. EDMS 14:15 No provider procedures requiring assistance completed. Patient did not have IV access ss during this emergency room visit. Administered Medications: No medications were administered Outcome: 14:10 Discharge ordered by MD. law 14:31 Discharged to home ambulatory. ss 14:31 Condition: good 14:31 Discharge instructions given to patient, Instructed on discharge instructions, follow up and referral plans. Demonstrated understanding of instructions, follow-up care. 14:32 Patient left the ED. ss Signatures: Dispatcher [employer] [facility] Magalie Segal mr Farzaneh Ace, RN RN Eliel Engel PA PA jr8 Acob, Cheryl RN RN ca1
[2020-08-22 14:35] LABS: Platelet Estimate ADEQ; White Blood Cell Scan OK (OK)
[2020-08-22 14:36] LABS: Blood Morphology Comment NOT SEEN (NOT SEEN)
[2020-08-22 14:53] VITALS: TEMP 98.1; O2SAT 100
[2020-08-22 14:55] VITALS: BP 157/79
== END 2020-08-22 14:32 | disposition home or self-care (01) ==
LOC: ER 12:34
DX: R42 Dizziness and giddiness (principal); I10 Essential (primary) hypertension; E03.9 Hypothyroidism, unspecified; Z88.0 Allergy status to penicillin; Z88.8 Allergy status to other drugs, medicaments and biological substances
CPT/HCPCS: 36415; 70450; 80048; 82947; 85025; 93005; 99284

== ENCOUNTER 2022-01-06 12:47 | Emergency (ER) | payer OTHER ==
--- NOTE | 2022-01-06 13:50 | EDPHYS ---
Physician Documentation [facility] Name: Dinora Gutierrez Age: 86 yrs Sex: Female : 1935 Arrival Date: 01/06/2022 Time: 12:50 Bed 30 Private MD: ED Physician Charles Bullock Historical: - Allergies: 01/06 13:01 Lisinopril; vg1 13:01 PENICILLINS; vg1 13:01 zestil; vg1 - Home Meds: 13:01 Cartia XT 300 mg Oral cp24 1 cap once daily [Active]; levothyroxine 100 mcg tab 1 tab vg1 once daily [Active]; - PMHx: 13:01 Hypertension; Hypothyroidism; vg1 - Immunization history:: Client reports receiving the 2nd dose of the Covid vaccine. - Social history:: Smoking status: Patient denies any tobacco usage or history of. Vital Signs: 12:58 BP 197 / 89; Pulse 74; Resp 17; Temp 97.4; Pulse Ox 100% ; Weight 63.5 kg; Height 5 ft. vg1 10 in. (177.80 cm); Pain 0/10; 13:24 BP 178 / 90; Pulse 73; Resp 18; Pulse Ox 100% on R/A; ss7 12:58 Body Mass Index 20.09 (63.50 kg, 177.80 cm) vg1 MDM: 13:18 Patient medically screened. keara 13:48 Data reviewed: vital signs, nurses notes. Counseling: I had a detailed discussion with fifi the patient and/or guardian regarding: the historical points, exam findings, and any diagnostic results supporting the discharge/admit diagnosis, the need for outpatient follow up, to return to the emergency department if symptoms worsen or persist or if there are any questions or concerns that arise at home. ED course: Patient is alert and non symptomatic in the ED. Patient states she is now going to take her medication. Patient is otherwise given strict return precautions. Patient understood and agrees with the plan of care. . Administered Medications: No medications were administered Disposition Summary: 01/06/22 13:50 Discharge Ordered Location: Home [facility] Condition: Stable [facility] Diagnosis - Hypertension [facility] Followup: [facility] - With: Private Physician - When: As needed - Reason: Recheck today's complaints, Continuance of care, Re-evaluation by your physician Discharge Instructions: - Discharge Summary Sheet jmm - Hypertension, Adult, [id number] jmm Forms: - Medication Reconciliation Form jmm - Thank You Letter jmm - Antibiotic Education vikam - Prescription Opioid Use vikam Signatures: Charles Bullock MD MD cha Mickail, Joel, PA PA jmm Garcia, Victoria, RN RN vg1
--- NOTE | 2022-01-06 13:50 | ER ---
Nurse's Notes [facility] Name: Dinora Gutierrez Age: 86 yrs Sex: Female : 1935 Arrival Date: 01/06/2022 Time: 12:50 Bed 30 Private MD: Diagnosis: Hypertension Presentation: 01/06 12:58 Chief complaint: Patient states: Ran out of BP meds over the weekend and was needing to vg1 go to [place] but wanted to get BP checked. Denies chest pain, shortness of breath, or N/V. States wants to see a doctor here to get medication instead of driving 30 minutes to get medication. Coronavirus screen: Vaccine status: Patient reports receiving the 2nd dose of the covid vaccine. Client denies travel out of the [place] in the last 14 days. Ebola Screen: Patient negative for fever greater than or equal to 101.5 degrees Fahrenheit, and additional compatible Ebola Virus Disease symptoms. Initial Sepsis Screen: Does the patient meet any 2 criteria? No. Patient's initial sepsis screen is negative. Does the patient have a suspected source of infection? No. Patient's initial sepsis screen is negative. Risk Assessment: Do you want to hurt yourself or someone else? Patient reports no desire to harm self or others. Onset of symptoms was January 06, 2022. 12:58 Method Of Arrival: Ambulatory vg1 12:58 Acuity: XAVIER 3 vg1 Triage Assessment: 13:01 General: Appears in no apparent distress. comfortable, Behavior is calm, cooperative. vg1 Pain: Denies pain. Cardiovascular: Denies chest pain, nausea, shortness of breath. Historical: - Allergies: 13:01 Lisinopril; vg1 13:01 PENICILLINS; vg1 13:01 zestil; vg1 - Home Meds: 13:01 Cartia XT 300 mg Oral cp24 1 cap once daily [Active]; levothyroxine 100 mcg tab 1 tab vg1 once daily [Active]; - PMHx: 13:01 Hypertension; Hypothyroidism; vg1 - Immunization history:: Client reports receiving the 2nd dose of the Covid vaccine. - Social history:: Smoking status: Patient denies any tobacco usage or history of. Screenin:23 Abuse screen: Denies threats or abuse. Nutritional screening: No deficits noted. ss7 Tuberculosis screening: No symptoms or risk factors identified. Fall Risk None identified. Assessment: 13:23 General: Appears in no apparent distress. comfortable, Behavior is calm, cooperative, ss7 appropriate for age. Pain: Denies pain. Neuro: Level of Consciousness is awake, alert, obeys commands, Oriented to person, place, time, situation. Cardiovascular: Heart tones S1 S2. Respiratory: Reports Breath sounds are clear bilaterally. GI: No deficits noted. Bowel sounds present X 4 quads. : No deficits noted. EENT: No deficits noted. Derm: No deficits noted. Musculoskeletal: No deficits noted. Vital Signs: 12:58 BP 197 / 89; Pulse 74; Resp 17; Temp 97.4; Pulse Ox 100% ; Weight 63.5 kg; Height 5 ft. vg1 10 in. (177.80 cm); Pain 0/10; 13:24 BP 178 / 90; Pulse 73; Resp 18; Pulse Ox 100% on R/A; ss7 12:58 Body Mass Index 20.09 (63.50 kg, 177.80 cm) vg1 ED Course: 12:50 Patient arrived in ED. as 13:01 Triage completed. vg1 13:01 Arm band placed on. 1 13:04 Enio Johnson PA is PHCP. [facility] 13:04 Charles Bullock MD is Attending Physician. [facility] 13:05 Hetal Rubio, RN is Primary Nurse. ss7 13:23 Patient has correct armband on for positive identification. Side rails up X2. ss7 13:23 No provider procedures requiring assistance completed. ss7 14:07 Patient did not have IV access during this emergency room visit. ss7 Administered Medications: No medications were administered Outcome: 13:50 Discharge ordered by . fifi 14:06 Discharged to home ss7 14:06 unknown 14:06 Discharge instructions given to Pt left prior to discharge paperwork. 14:07 Patient left the ED. 7 Signatures: Enio Johnson PA PA jmm Martinez, Amelia as Garcia, Victoria, RN RN [facility] Hetal Rubio, LEDA RN 7
[2022-01-06 14:11] VITALS: TEMP 97.4; O2SAT 100
[2022-01-06 14:12] VITALS: BP 178/90
== END 2022-01-06 14:07 | disposition home or self-care (01) ==
LOC: ER 12:47
DX: I10 Essential (primary) hypertension (principal); Z88.0 Allergy status to penicillin; Z88.8 Allergy status to other drugs, medicaments and biological substances
CPT/HCPCS: 99281

== ENCOUNTER 2022-10-07 14:01 | Emergency (ER) | payer OTHER ==
--- OUTSIDE RECORDS SUMMARY | 2022-10-07 14:06 | XMS REPORT | Continuity of Care Document ---
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 [facility] Pain in Pain in Problem Active 2013-112022-07-07 [place] moria lower limb lower limb 0-22 22:34:22 l (finding) (finding) 00:00: Herm any Active 00 08/30/2014 Problem 07/07/2022 Data migrated from [facility] on 04/07/15. [facility] Inguinal Inguinal Problem Active 2022-07-07 Memoria pain pain 3-02 22:34:22 l (finding) (finding) 00:00: Herm any Active 00 01/08/2013 Problem 07/07/2022 Data migrated from [facility] on 04/07/15. [facility] Body mass Body mass Problem Active 2022-07-07 Memoria index index 22:34:22 l 20-24 - 20-24 - Eliu normal normal (finding) (finding) Active Problem 07/07/2022 [facility] Drug Drug Problem Active 2022-07-07 Memor ia therapy therapy 22:34:22 l finding finding Eliu (finding) (finding) Active Problem 07/07/2022 [facility] Hypertensi Hypertens Problem Active 2022-07-07 Memoria ve carla 22:34:22 l disorder, disorder, Herm any systemic systemic arterial arterial (disorder) (disorder) Active Problem 07/07/2022 Data migrated from [facility] on 04/07/15. Medical Group Hypothyroi Hypothyro Problem Active 2022-07-07 Memoria dism idism 22:34:22 l (disorder) (disorder) He rmann Active Problem 07/07/2022 [facility] Group Inguinal Inguinal Problem Active 2022-07-07 Memoria lymphadeno lymphadeno 22:34:22 l mayra mayra Eliu (disorder) (disorder) Active Problem 07/07/2022 Medical Group Leukopenia Problem Active 2022-07-07 M emoria (disorder) Leukopenia 22:34:22 l (disorder) Tan n Active Problem 07/07/2022 [facility] Group Mixed Mixed Problem Active 2022-07-07 Memor ia hyperlipid hyperlipid 22:34:22 l emia emia Eliu (disorder) (disorder) Active Problem 07/07/2022 Medical Group Osteopenia Osteopeni Problem Active 2022-07-07 Memoria (disorder) a 22:34:22 l (disorder) Tan n Active Problem 07/07/2022 [facility] Breast Breast Problem Active 2022-07-07 [facility] min[facility] neoplasm neoplasm 22:34:22 l screening screening Herm any (procedure (procedure ) ) Active Problem 07/07/2022 [facility] Group Screening Screening Problem Active 2022-07-07 Memoria status status 22:34:22 l (finding) (finding) Herm any Active Problem 07/07/2022 [facility] Group Tinea Tinea Problem Active 2022-07-07 Memor ia pedis pedis 22:34:22 l (disorder) (disorder) He rmann Active Problem 07/07/2022 [facility] Group 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:34: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 Eliu (finding) (finding) Active Problem 07/07/2022 [facility] Group Menopausal Menopausa Problem Active 2022-07-07 Memoria and l and 22:34:22 l postmenopa postmenopa Dennis candelario usal usal disorders disorders (disorder) (disorder) Active Problem 07/07/2022 [facility] Group Patient Patient Problem Active 2022-07-07 Me bria encounter encounter 22:34:22 l status status Eliu (finding) (finding) Active Problem 07/07/2022 [facility] Weight Weight Problem Active 2022-07-07 [facility] min[facility] loss loss 22:34:22 l finding finding Eliu (finding) (finding) Active Problem 07/07/2022 [facility] History of Past Illness Condition Condition Condition Status Onset Resolution Last Treating Co mments Source Name Details Category Date Date Treatment Clinician Date Other long 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 06-24 03:56:04 03:56:04 l (current) (current) 19:09: Laura agarwal drug drug 00 therapy therapy 06/24/2022 06/27/2022 [facility] Hypothyroi Hypothyro Problem 2022-06-27 2022-06-27 Memoria dism, idism, 06-24 03:56:04 03:56:04 l unspecifie unspecifie 19:09: Dennis candelario d d 00 06/24/2022 06/27/2022 [facility] Abnormal Abnormal Problem 2022-06-27 2022-06-27 Memoria weight weight 06-24 03:56:04 03:56:04 l loss loss 19:09: Eliu 06/24/2022 00 06/27/2022 Medical Group Lichen Lichen Problem 2022-06-27 2022-06-27 Memoria sclerosus sclerosus 06-24 03:56:04 03:56:04 l et et 19:09: 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 06/24/2022 06/27/2022 [facility] Group Essential Essential Problem 2022-06-27 2022-06-27 Memoria (primary) (primary) 06-24 03:56:04 03:56:04 l hypertensi hypertensi 19:08: Dennis candelario on on 00 06/24/2022 06/27/2022 Medical Group Mixed Mixed Problem 2021-12-29 2021-12-29 Steven shinerirosa hyperlipid hyperlipid 2- 01:47:18 01:47:18 l emia emia 19:37: Eliu 12/26/2021 00 12/29/2021 Medical Group Encounter Encounter Problem 2021-12-29 2021-12-29 Memoria for for - 01:47:18 01:47:18 l screening screening 19:36: Herm any mammogram mammogram 00 for for malignant malignant neoplasm neoplasm of breast of breast 12/26/2021 Medical Group Allergies, Adverse Reactions, Alerts Allergy Allergy Status Severity Reaction(s) Onset Inactive Treating Comm ents Source Name Type Date Date Clinician rob baldwinoxica Active 2013-11 Memori a m<sup>3, m<sup>3, 0-22 l 4</sup> 4</sup> 05:00: [place] 00 penicill penicill Active Memori a ins<sup> ins<sup> l 1</sup> 1</sup> Eliu lisinopr lisinopr Active Memori a il<sup>2 il<sup>2 l </sup> </sup> Eliu Social History Social Habit Start Date Stop Date Quantity Comments Source Social History 2015-09-10 2015-09-10 [facility] judith 18:12:46 18:12:46 Medications Ordered Filled Start Stop Current Ordering Indication Dosage Frequency Signature Comments Components Source Medication Medication Date Date Medication? Clinician (SIG) Name Name clobetasol Yes 60 gm, Memor ia topical 8-16 APPLY l 0.05% 18:36: TOPICALLY Eliu ointment 00 TO THE AFFECTED AREA TWICE DAILY, 0 Refill(s) Cartia XT Yes See Memoria 300 mg/24 5-05 Instructio l hours oral 19:29: ns, TAKE Her yu capsule, 00 ONE extended CAPSULE BY release MOUTH ONCE DAILY, # 90 cap, 3 Refill(s), Pharmacy: [id number], 173.99, cm, 02/20/21 14:28:00 CDT, Height, 59.602, kg, 03/13/22 14:17:00 CDT, Weight clobetasol 2022-0 Yes See Memoria topical 5-05 Instructio l 0.05% 19:29: ns, APPLY Eliu ointment 00 TOPICALLY TO THE AFFECTED AREA TWICE DAILY, # 60 gm, 1 Refill(s), Pharmacy: [facility] #[id number], 173.99, cm, 02/20/21 14:28:00 CDT, Height, 59.602, kg, 03/13/22 14:17:00 CDT, Weight Cartia XT Yes 240 mg = 2 Me moria 120 mg/24 4-04 cap, PO, l hours oral 21:51: Daily, # Her yu capsule, 00 180 cap, 1 extended Refill(s), release Pharmacy: [id number], 173.99, cm, 02/20/21 14:28:00 CDT, Height, 60.057, kg, 12/26/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, Weight 24 HR Yes See Memoria Diltiazem 2-17 Instructio l Hydrochlori 19:45: ns, TAKE He rmann de 300 MG 00 ONE Extended CAPSULE BY Release MOUTH ONCE Capsule DAILY, # [Cartia] 90 cap, 3 Refill(s), Pharmacy: [facility] #[id number], 173.99, cm, 02/20/21 14:28:00 CDT, Height, 60.057, kg, 12/26/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, Weight 24 HR 0 Yes See Memoria Diltiazem 4-14 Instructio l Hydrochlori 20:10: ns, TAKE He rmann de 300 MG 00 ONE Extended CAPSULE BY Release MOUTH ONCE Capsule DAILY, # [Cartia] 90 cap, 3 Refill(s), Pharmacy: [facility], 173.99, cm, 02/20/21 14:28:00 CDT, Height, 65.455, kg, 02/20/21 14:28:00 CDT, Weight Clobetasol 0 Yes 1 appl, [facility] minoo Propionate 4-14 TOP, BID, l 0.0005 20:10: # 45 gm, 1 Rachele nn MG/MG 00 Refill(s), Topical Pharmacy: Ointment [facility] #[id number], 173.99, cm, 02/20/21 14:28:00 CDT, Height, 65.455, kg, 02/20/21 14:28:00 CDT, Weight Clobetasol 2017-11 Yes 1 appl, [facility] minoo Propionate 2-05 TOP, BID, l 0.0005 17:32: # 45 gm, 0 Rachele nn MG/MG 48 Refill(s), Topical Pharmacy: Ointment [facility] 24 HR 2017-11 Yes See Memoria Diltiazem 0-26 Instructio l Hydrochlori 20:52: ns, TAKE He rmann de 300 MG 54 ONE Extended CAPSULE BY Release MOUTH ONCE Capsule DAILY, # [Cartia] 90 cap, 3 Refill(s), Pharmacy: [facility] levothyroxi 2017-11 Yes See Memori a ne 100 mcg 0-26 Instructio l (0.1 mg) 20:52: ns, TAKE Rachele nn oral tablet 51 ONE TABLET BY MOUTH ONCE DAILY, # 90 tab, 3 Refill(s), Pharmacy: [facility] Doxazosin 2017-11 Yes 1 mg = 1 Me moria MG Oral 0-26 tab, PO, l Tablet 20:52: Daily, [place] [Cardura] 00 take first three doses at bedtime., # 90 tab, 3 Refill(s), Pharmacy: [facility] Clobetasol Yes 1 appl, [facility] minoo Propionate 5-15 TOP, BID, l 0.0005 15:06: # 45 gm, 0 Rachele nn MG/MG 23 Refill(s) Topical Ointment diltiazem Yes 300 mg = 1 Me moria 300 mg/24 5-15 cap, PO, l hours oral 14:59: Daily, # Her yu capsule, 33 90 cap, 3 extended Refill(s), release Pharmacy: [id number] Levothyroxi Yes 100 Memori a ne Sodium 5-15 microgram l 0.1 MG Oral 14:59: = 1 tab, He rmann Tablet 30 PO, Daily, [Synthroid] # 90 tab, 3 Refill(s), Pharmacy: [id number] Immunizations Ordered Immunization Filled Immunization Date Status Commen ts Source Name Name [id number] 2022-02-07 Completed [facility] rial NA-1273vaxMODERNA 00:00:00 [place] [id number] 2021-09-17 Completed [facility] rial NA-1273vaxMODERNA 00:00:00 Eliu influenza virus 2021-09-16 Completed [facility] vaccine, inactivated 00:00:00 Herm any [id number] 2021-01-07 Completed [facility] rial NA-1273vaxMODERNA 00:00:00 [place] [id number] 2020-12-10 Completed [facility] rial NA-1273vaxMODERNA 00:00:00 Eliu influenza virus 2018-09-03 Completed [facility] vaccine, inactivated 21:06:00 Herm any influenza virus 2017-09-28 Completed [facility] vaccine, inactivated 16:51:00 Herm any influenza virus 2016-08-08 Completed [facility] vaccine, inactivated 16:40:00 Herm any Hx influenza 2013-08-25 Completed [facility] vaccine-unspecified< 16:13:11 Herm any sup>2</sup> influenza virus 2013-08-25 Completed [facility] vaccine, 05:00:00 [place] inactivated<sup>1</s up> pneumococcal 2012-08-10 Completed [facility] 23-valent 14:34:40 [place] vaccine<sup>3</sup> Vital Signs Vital Name Observation Time Observation Value Comments Source Systolic (mm Hg) 2022-06-24 19:18:00 [facility] Eliu Diastolic (mm Hg) 2022-06-24 19:18:00 Mem orial [place] Temperature Oral (F) 2022-06-24 18:37:00 98.7 F [facility] Eliu Heart Rate 2022-06-24 18:37:00 [facility]u Systolic (mm Hg) 2022-06-24 18:37:00 [facility] rial [place] Diastolic (mm Hg) 2022-06-24 18:37:00 Mem orial Eliu Height 2022-06-24 18:37:00 172.72 cm [facility] Eliu Weight 2022-06-24 18:37:00 [facility]u BMI Calculated 2022-06-24 18:37:00 Memori al Eliu Temperature Oral (F) 2022-03-13 19:17:00 99.0 F [facility] Eliu Heart Rate 2022-03-13 19:17:00 [facility] [place] Systolic (mm Hg) 2022-03-13 19:17:00 [facility] rial [place] Diastolic (mm Hg) 2022-03-13 19:17:00 Mem orial [place] Weight 2022-03-13 19:17:00 [facility] Eliu Temperature Oral (F) 2021-12-26 19:30:00 99.1 F [facility] Eliu Heart Rate 2021-12-26 19:30:00 [facility] [place] Systolic (mm Hg) 2021-12-26 19:30:00 [facility] rial [place] Diastolic (mm Hg) 2021-12-26 19:30:00 Mem orial Eliu Weight 2021-12-26 19:30:00 [facility] Eliu Systolic (mm Hg) 2021-02-20 19:28:00 [facility] rial [place] Diastolic (mm Hg) 2021-02-20 19:28:00 Mem orial Eliu Heart Rate 2021-02-20 19:28:00 [facility] Eliu Temperature Oral (F) 2021-02-20 19:28:00 99.0 F [facility] Eliu Height 2021-02-20 19:28:00 173.99 cm [facility] [place] Weight 2021-02-20 19:28:00 [facility] Eliu BMI Calculated 2021-02-20 19:28:00 Memori al Eliu Systolic (mm Hg) 2018-10-13 16:35:00 [facility] Eliu Diastolic (mm Hg) 2018-10-13 16:35:00 Mem orial Eliu Heart Rate 2018-10-13 16:35:00 [facility] [place] Temperature Oral (F) 2018-10-13 16:35:00 97.7 F [facility] [place] Respitory Rate 2018-10-13 16:35:00 Memori al [place] Weight 2018-10-13 16:35:00 [facility] [place] Weight 2018-09-03 19:50:00 [facility] Eliu Respitory Rate 2018-09-03 19:50:00 Memori al [place] Temperature Oral (F) 2018-09-03 19:50:00 98 F [facility] Eliu Heart Rate 2018-09-03 19:50:00 [facility] Eliu Systolic (mm Hg) 2018-09-03 19:50:00 [facility] rial [place] Diastolic (mm Hg) 2018-09-03 19:50:00 Mem orial [place] Weight 2018-03-23 14:24:00 [facility] [place] BMI Calculated 2018-03-23 14:24:00 Memori al [place] Height 2018-03-23 14:24:00 172.72 cm [facility] [place] Respitory Rate 2018-03-23 14:24:00 Memori al [place] Temperature Oral (F) 2018-03-23 14:24:00 98.8 F [facility] Eliu Heart Rate 2018-03-23 14:24:00 [facility] Eliu Systolic (mm Hg) 2018-03-23 14:24:00 [facility] Eliu Diastolic (mm Hg) 2018-03-23 14:24:00 Mem orial [place] Height 2017-09-28 14:43:00 173.99 cm [facility] Eliu BMI Calculated 2017-09-28 14:43:00 Memori al Eliu Weight 2017-09-28 14:43:00 [facility] [place] Systolic (mm Hg) 2017-09-28 14:43:00 [facility] rial [place] Diastolic (mm Hg) 2017-09-28 14:43:00 Mem orial [place] Temperature Oral (F) 2017-09-28 14:43:00 98.3 F [facility] Eliu Respitory Rate 2017-09-28 14:43:00 Memori al Eliu Heart Rate 2017-09-28 14:43:00 [facility] Eliu Procedures Procedure Date / Time Performed Performing Clinician [facility] e Screening mammogram of 2022-04-04 05:00:00 Memor ial [place] bilateral breasts<sup>1</sup> Hysterectomy [facility] [place] Procedure on thyroid [facility] rmann gland Laminectomy<sup>2</sup> [facility] Eliu Encounters Start End Encounter Admission Attending Care Care Encounter Source Date/Time Date/Time Type Type Clinicians Facility Department ID 2022-07-04 2022-07-05 Between nullFlavo [facility] [id number] Memoria 20:40:04 20:40:04 Visit r Primary 11 l Care Eliu Kee 2022-07-04 2022-07-05 Outpatient MG [facility] [id number] 15:40:04 15:40:04 11 2022-06-25 2022-06-25 Ambulatory nullFlavo [facility] [id number] Memoria 18:20:00 18:20:00 Pre-Reg r Primary 29 l Tarsha Eliuany Kee 2022-06-25 2022-06-25 Outpatient MHIE MHIE [id number] Memoria 13:20:00 13:20:00 29 arline Nowak 2022-06-25 2022-06-25 Outpatient Gorman MG MG [id number] 13:20:00 13:20:00 Jerecia 29 Alexandra 2022-06-24 2022-06-25 Outpatient nullFlavo [facility] [id number] Memoria 18:40:00 04:59:59 r Primary 31 arline Willingham Eliuany Kee 2022-06-24 2022-06-24 Outpatient Sherif, MG [facility] [id number] 13:40:00 23:59:59 Jerecia 31 Alexandra 2022-06-24 2022-06-24 Outpatient MHIE MHIE [id number] Memoria 13:40:00 13:40:00 31 arline Eliu 2022-05-23 2022-05-23 Outpatient ALFREDO_HOWARD INSY [facility] [address] [place] 11:43:00 11:43:00 HN 0715 da [facility]22-03-13 2022-03-14 Outpatient nullFlavo [facility] [id number] Memoria 19:20:00 04:59:59 r Primary 30 l Tarsha [place] Kee 2022-03-13 2022-03-13 Outpatient Gorman MG MG [id number] 14:20:00 23:59:59 Jerecia 30 Alexandra 2022-03-13 2022-03-13 Outpatient MHIE MHIE [id number] Memoria 14:20:00 14:20:00 30 arline Nowak 2022-02-10 2022-02-12 Phone nullFlavo [facility] [id number] Memoria 19:10:44 04:59:59 Message r Primary 02 arline Willingham Eliuany [place] 2022-02-10 2022-02-11 Outpatient MHMG [facility] [id number] 14:10:44 23:59:59 02 2021-12-30 2021-12-31 Between nullFlavo [facility] [id number] Memoria 15:08:57 15:08:57 Visit r Primary 09 l [facility] 2021-12-30 2021-12-31 Outpatient MHMG MH[facility] [id number] 09:08:57 09:08:57 09 2021-12-26 2021-12-27 Outpatient nullFlavo [facility] [id number] Memoria 19:20:00 05:59:59 r Primary 28 [facility] 2021-12-26 2021-12-26 Outpatient Gorman, MG [facility] [id number] 13:20:00 23:59:59 Jerecia 28 Alexandra 2021-12-26 2021-12-26 Outpatient MHIE MHIE [id number] Memoria 13:20:00 13:20:00 28 [facility] 2021-03-01 2021-03-02 Between nullFlavo [facility] [id number] Memoria 20:01:59 20:01:59 Visit r Primary 08 l [facility] 2021-03-01 2021-03-02 Outpatient MHMG [facility] [id number] 15:01:59 15:01:59 08 2021-02-28 2021-03-01 Between nullFlavo [facility] [id number] Memoria 18:25:30 18:25:30 Visit r Primary 07 l [facility] 2021-02-28 2021-03-01 Outpatient MHMG [facility] [id number] 13:25:30 13:25:30 07 2021-02-20 2021-02-21 Outpatient nullFlavo [facility] [id number] Memoria 19:40:00 04:59:59 r Primary 27 [facility] 2021-02-20 2021-02-20 Outpatient Gorman, MG [facility] [id number] 14:40:00 23:59:59 Jerecia 27 Alexandra 2021-02-20 2021-02-20 Outpatient MHIE MHIE [id number] Memoria 14:40:00 14:40:00 27 [facility] 2020-01-05 2020-01-06 Between nullFlavo [facility] Family [id number] Memoria 14:20:38 14:20:38 Visit r Medicine 06 l [place] 2020-01-05 2020-01-06 Outpatient MHMG MH[facility] [id number] 08:20:38 08:20:38 06 2020-01-04 2020-01-05 Outpatient nullFlavo [facility] [id number] Memoria 16:00:00 05:59:59 r Radiology 26 arline Nowak 2020-01-04 2020-01-04 Outpatient VISIT, MHMG [facility] [id number] 10:00:00 23:59:[address] 26 MAMMO 2020-01-04 2020-01-04 Outpatient MHIE MHIE [id number] Memoria 10:00:00 10:00:00 26 arline Nowak 2019-12-19 2019-12-21 Phone nullFlavo [facility] Family [id number] Memoria 16:07:34 05:59:59 Message r Medicine 01 arline Nowak 2019-12-19 2019-12-20 Outpatient MHMG [facility] [id number] 10:07:34 23:59:59 01 2018-10-13 2018-10-15 Phone nullFlavo [facility] Family [id number] Memoria 14:58:00 05:59:59 Message r Medicine 00 arline Nowak 2018-10-13 2018-10-14 Outpatient MHMG [facility] [id number] 08:58:00 23:59:59 00 2018-10-13 2018-10-14 Outpatient nullFlavo [facility] Family 4 [id number] Memoria 16:15:00 05:59:59 r Medicine 24 arline Nowak 2018-10-13 2018-10-14 Outpatient nullFlavo [facility] Family 4 [id number] Memoria 15:30:00 05:59:59 r Medicine 22 arline Nowak 2018-10-13 2018-10-14 Outpatient nullFlavo [facility] [id number] Memoria 15:00:00 05:59:59 r Radiology 23 arline Nowak 2018-10-13 2018-10-13 Outpatient Laz, MG [facility] [id number] 10:15:00 23:59:59 Law Randall 2018-10-13 2018-10-13 Outpatient VISIT, MHMG [facility] [id number] 09:30:00 23:59:[address] 22 JONELLE 2018-10-13 2018-10-13 Outpatient VISIT, MHMG MH[facility] [id number] 09:00:00 23:59:59 NURSE STWH 23 JONELLE 2018-10-13 2018-10-13 Outpatient MHIE MHIE [id number] Memoria 10:15:00 10:15:00 24 arline Nowak 2018-10-13 2018-10-13 Outpatient MHIE MHIE [id number] Memoria 09:30:00 09:30:00 22 arline Nowak 2018-10-13 2018-10-13 Outpatient MHIE MHIE [id number] Memoria 09:00:00 09:00:00 23 arline Nowak 2018-09-03 2018-09-04 Outpatient nullFlavo [facility] Family 4 [id number] Memoria 19:30:00 04:59:59 r Medicine 25 arline Nowak 2018-09-03 2018-09-03 Outpatient RL Nesbitt MG [id number] 14:30:00 23:59:59 Law P 25 2018-09-03 2018-09-03 Outpatient MHIE MHIE [id number] Memoria 14:30:00 14:30:00 25 arline Nowak 2018-03-23 2018-03-24 Outpatient nullFlavo [facility] Family 4 [id number] Memoria 14:30:00 04:59:59 r Medicine 21 arline Nowak 2018-03-23 2018-03-23 Outpatient RL Nesbitt MG [id number] 09:30:00 23:59:59 Law P 21 2018-03-23 2018-03-23 [place] [id number] Memoria 14:00:00 14:00:00 Pre-Reg r Radiology 20 arline Nowak 2018-03-23 2018-03-23 Outpatient MHIE MHIE [id number] Memoria 09:30:00 09:30:00 21 arline Nowak 2018-03-23 2018-03-23 Outpatient MHIE MHIE [id number] Memoria 09:00:00 09:00:00 20 arline SanchezEliu 2018-03-23 2018-03-23 Outpatient VISIT, MHMG MHMG [id number] 09:00:00 09:00:00 NURSE STWH 20 JONELLE 2017-09-28 2017-09-29 Outpatient nullFlavo [facility] Family 4 [id number] Memoria 17:00:00 05:59:59 r Medicine 19 arline Nowak 2017-09-28 2017-09-29 Outpatient nullFlavo [facility] Family 4 [id number] Memoria 14:45:00 05:59:59 r Medicine 18 arline Nowak 2017-09-28 2017-09-28 Outpatient Laz, TRUMG [facility] [id number] 11:00:00 23:59:59 Law P 19 2017-09-28 2017-09-28 Outpatient Laz, TRUMG [facility] [id number] 08:45:00 23:59:59 Law P 18 2017-09-28 2017-09-28 Ambulatory nullFlavo [facility] [id number] Memoria 17:00:00 17:00:00 Pre-Reg r Radiology 17 arline Nowak 2017-09-28 2017-09-28 Outpatient MHIE MHIE [id number] Memoria 11:00:00 11:00:00 19 arline Eliu 2017-09-28 2017-09-28 Outpatient MHIE MHIE [id number] Memoria 11:00:00 11:00:00 17 arline Eliu 2017-09-28 2017-09-28 Outpatient VISIT, MHMG MHMG [id number] 11:00:00 11:00:00 NURSE STWC 17 BERNARD 2017-09-28 2017-09-28 Outpatient MHIE MHIE [id number] Memoria 08:45:00 08:45:00 18 arline Eliu 2017-06-19 2017-06-19 Outpatient MHIE MHIE [id number] Memoria 09:30:00 09:30:00 16 arline Nowak 2017-02-20 2017-02-20 Outpatient MHIE MHIE [id number] Memoria 09:30:00 09:30:00 15 arline Nowak 2016-09-26 2016-09-26 Outpatient MHIE MHIE [id number] Memoria 10:30:00 10:30:00 14 arline Nowak 2016-09-26 2016-09-26 Outpatient MHIE MHIE [id number] Memoria 10:30:00 10:30:00 13 arline Nowak 2016-09-22 2016-09-22 Outpatient MHIE MHIE [id number] Memoria 11:00:00 11:00:00 09 arline Nowak 2016-08-29 2016-08-29 Outpatient MHIE MHIE [id number] Memoria 10:00:00 10:00:00 11 l Eliu 2016-08-29 2016-08-29 Outpatient MHIE MHIE [id number] Memoria 09:00:00 09:00:00 10 l Eliu 2016-08-29 2016-08-29 Outpatient MHIE MHIE [id number] Memoria 09:00:00 09:00:00 12 l Eliu 2016-08-26 2016-08-26 Outpatient MHIE MHIE [id number] Memoria 10:30:00 10:30:00 08 l Eliu 2016-08-22 2016-08-22 Outpatient MHIE MHIE [id number] Memoria 10:30:00 10:30:00 04 l Eliu 2016-08-22 2016-08-22 Outpatient MHIE MHIE [id number] Memoria 09:30:00 09:30:00 07 arline Eliu 2016-08-08 2016-08-08 Outpatient MHIE MHIE [id number] Memoria 14:00:00 14:00:00 02 arline Nowak 2016-08-08 2016-08-08 Outpatient MHIE MHIE [id number] Memoria 13:00:00 13:00:00 05 arline Eliu 2016-08-08 2016-08-08 Outpatient MHIE MHIE [id number] Memoria 13:00:00 13:00:00 06 arline Nowak 2015-09-10 2015-09-10 Outpatient MHIE MHIE [id number] Memoria 13:00:00 13:00:00 01 arline Nowak 2015-09-10 2015-09-10 Outpatient MHIE MHIE [id number] Memoria 13:00:00 13:00:00 03 arline Nowak 2015-09-10 2015-09-10 Outpatient MHIE MHIE [id number] Memoria 11:00:00 11:00:00 00 arline Nowak Results Test Description Test Time Test Comments Results Result Comments Source CHEM PANEL 2022-06-24 19:22:00 Test Item Value Reference Range Interpretation Comme nts Glucose Lvl (test code = Glucose Lvl) 82 65-99 [id number] 19:22:00 Test Item Value Reference Range Interpretation Comments BUN (test code = BUN) 20 7-25 [email or web address] [id number] 19:22:00 Test Item Value Reference Range Interpretation Comments Creatinine Lvl (test code = Creatinine 0.93 0.60-0.95 Lvl) [place] [id number] 19:22:00 Test Item Value Reference Range Interpretation Comments eGFR (test code = eGFR) 60 [place] [id number] 19:22:00 Test Item Value Reference Range Interpretation Comments B/C Ratio (test code = B/C NOT APPLICABLE 04-30 Ratio) [place] [id number] 19:22:00 Test Item Value Reference Range Interpretation Comments Sodium Lvl (test code = Sodium Lvl) 139 135-146 [place] [id number] 19:22:00 Test Item Value Reference Range Interpretation Comments Potassium Lvl (test code = Potassium 4.2 3.5-5.3 Lvl) [place] [id number] 19:22:00 Test Item Value Reference Range Interpretation Comments Chloride Lvl (test code = Chloride Lvl) 102 98-110 [place] [id number] 19:22:00 Test Item Value Reference Range Interpretation Comments CO2 (test code = CO2) 28 20-32 [place] [id number] 19:22:00 Test Item Value Reference Range Interpretation Comments Calcium Lvl (test code = Calcium Lvl) 9.6 8.6-10.4 [place] [id number] 19:22:00 Test Item Value Reference Range Interpretation Comments Total Protein (test code = Total 7.8 6.1-8.1 Protein) [place] [place] [id number] 19:22:00 Test Item Value Reference Range Interpretation Comments Albumin Lvl (test code = Albumin Lvl) 4.5 3.6-5.1 [place] [address]756-08-16 19:22:00 Test Item Value Reference Range Interpretation Comments Globulin (test code = Globulin) 3.3 1.9-3.7 [place] 781162-08-16 19:22:00 Test Item Value Reference Range Interpretation Comments A/G Ratio (test code = A/G Ratio) 1.4 1.0-2.5 [place] 781162-08-16 19:22:00 Test Item Value Reference Range Interpretation Comments Bili Total (test code = Bili Total) 0.6 0.2-1.[address] [facility]2022-08-16 19:22:00 Test Item Value Reference Range Interpretation Comments Alk Phos (test code = Alk Phos) 46 37-[address] [facility]2022-08-16 19:22:00 Test Item Value Reference Range Interpretation Comments ASPARTATE TRANSAMINASE (test code = 23 10-35 ASPARTATE TRANSAMINASE) [facility]2022-08-16 19:22:00 Test Item Value Reference Range Interpretation Comments ALANINE AMINOTRANSFERASE (test code = 13 6-29 ALANINE AMINOTRANSFERASE) [place] 630742-08-16 19:22:00 Test Item Value Reference Range Interpretation Comments WBC X 10x3 (test code = WBC X 10x3) 4.2 3.8-10.[address] [facility]iev[facility]FNKYFCEI3046-49-99 19:22:00 Test Item Value Reference Range Interpretation Comments RBC X 10x6 (test code = RBC X 10x6) 4.09 3.80-5.10 [place] 630742-08-16 19:22:00 Test Item Value Reference Range Interpretation Comments Hgb (test code = Hgb) 12.4 11.7-15.5 [place] [address]-08-16 19:22:00 Test Item Value Reference Range Interpretation Comments Hct (test code = Hct) 35.8 35.0-45.0 [place] [address]-08-16 19:22:00 Test Item Value Reference Range Interpretation Comments MCV (test code = MCV) 87.5 80.0-100.[address] [facility] HospitalXsizqsmXETALVFDHH2605-67-67 19:22:00 Test Item Value Reference Range Interpretation Comments MCH (test code = MCH) 30.3 pg 27.0-33.0 [place] 630742-08-16 19:22:00 Test Item Value Reference Range Interpretation Comments MCHC (test code = MCHC) 34.6 32.0-36.0 [place] 630742-08-16 19:22:00 Test Item Value Reference Range Interpretation Comments RDW (test code = RDW) 13.3 11.0-15.0 [place] [address]-08-16 19:22:00 Test Item Value Reference Range Interpretation Comments Platelet (test code = Platelet) 262 140-[address] [facility] HospitalPmupvttJWLJYAYUFH8150-79-46 19:22:00 Test Item Value Reference Range Interpretation Comments MPV (test code = MPV) 10.4 7.5-12.5 [place] 781162-02-17 19:58:00 Test Item Value Reference Range Interpretation Comments Glucose Lvl (test code = Glucose Lvl) 71 65-99 [place] 781162-02-17 19:58:00 Test Item Value Reference Range Interpretation Comments BUN (test code = BUN) 20 7- [place] 781162-02-17 19:58:00 Test Item Value Reference Range Interpretation Comments Creatinine Lvl (test code = Creatinine 0.96 0.60-0.88 Lvl) [place] 781162-02-17 19:58:00 Test Item Value Reference Range Interpretation Comments eGFR NON-AFR. [place] (test code = 54 eGFR NON-AFR. [place]) [facility]2022-02-17 19:58:00 Test Item Value Reference Range Interpretation Comments eGFR (test code = eGFR 63 ) [place] 781162-02-17 19:58:00 Test Item Value Reference Range Interpretation Comments B/C Ratio (test code = B/C Ratio) 21 - [place] 781162-02-17 19:58:00 Test Item Value Reference Range Interpretation Comments Sodium Lvl (test code = Sodium Lvl) 139 135-146 [place] 781162-02-17 19:58:00 Test Item Value Reference Range Interpretation Comments Potassium Lvl (test code = Potassium 3.9 3.5-5.3 Lvl) [facility]2022-02-17 19:58:00 Test Item Value Reference Range Interpretation Comments Chloride Lvl (test code = Chloride Lvl) 101 98-110 [place] 781162-02-17 19:58:00 Test Item Value Reference Range Interpretation Comments CO2 (test code = CO2) [place] 781162-02-17 19:58:00 Test Item Value Reference Range Interpretation Comments Calcium Lvl (test code = Calcium Lvl) 9.6 8.6-10.4 [place] 781162-02-17 19:58:00 Test Item Value Reference Range Interpretation Comments Total Protein (test code = Total 7.5 6.1-8.1 Protein) [address]02-17 19:58:00 Test Item Value Reference Range Interpretation Comments Albumin Lvl (test code = Albumin Lvl) 4.5 3.6-5.1 [place] [address]-02-17 19:58:00 Test Item Value Reference Range Interpretation Comments Globulin (test code = Globulin) 3.0 1.9-3.7 [place] [address]-02-17 19:58:00 Test Item Value Reference Range Interpretation Comments A/G Ratio (test code = A/G Ratio) 1.5 1.0-2.5 [place] [address]-02-17 19:58:00 Test Item Value Reference Range Interpretation Comments Bili Total (test code = Bili Total) 0.8 0.2-1.2 [place] [address]-02-17 19:58:00 Test Item Value Reference Range Interpretation Comments Alk Phos (test code = Alk Phos) 44 37-153 [place] 781162-02-17 19:58:00 Test Item Value Reference Range Interpretation Comments ASPARTATE TRANSAMINASE (test code = 23 10-35 ASPARTATE TRANSAMINASE) [address]02-17 19:58:00 Test Item Value Reference Range Interpretation Comments ALANINE AMINOTRANSFERASE (test code = 11 6-29 ALANINE AMINOTRANSFERASE) [address]02-17 19:58:00 Test Item Value Reference Range Interpretation Comments WBC X 10x3 (test code = WBC X 10x3) 4.3 3.8-10.8 [place] [address]-02-17 19:58:00 Test Item Value Reference Range Interpretation Comments RBC X 10x6 (test code = RBC X 10x6) 3.98 3.80-5.[address]02-17 19:58:00 Test Item Value Reference Range Interpretation Comments Hgb (test code = Hgb) 11.9 11.7-15.5 [place] [address]-02-17 19:58:00 Test Item Value Reference Range Interpretation Comments Hct (test code = Hct) 35.4 35.0-45.0 [place] [address]-02-17 19:58:00 Test Item Value Reference Range Interpretation Comments MCV (test code = MCV) 88.9 80.0-100.[address] [facility] HospitalFxtyzpsWFLIHMMCCH2238-53-90 19:58:00 Test Item Value Reference Range Interpretation Comments MCH (test code = MCH) 29.9 pg 27.0-33.[address] [facility] HospitalCcwlhbkZWUOKYPZOS6816-03-67 19:58:00 Test Item Value Reference Range Interpretation Comments MCHC (test code = MCHC) 33.6 32.0-36.[address] [facility] HospitalZhobmjdBTJNRTPDMQ0858-86-55 19:58:00 Test Item Value Reference Range Interpretation Comments RDW (test code = RDW) 13.0 11.0-15.[address] [facility] HospitalFjcmkrzNOLUMDATQA0897-24-45 19:58:00 Test Item Value Reference Range Interpretation Comments Platelet (test code = Platelet) 253 140-[address] [facility] HospitalQpjnrxdFVTQSBPCPH2340-08-62 19:58:00 Test Item Value Reference Range Interpretation Comments MPV (test code = MPV) 10.6 7.5-12.5 [facility]stZehtonsQUKUHU4128-09-56 19:58:00 Test Item Value Reference Range Interpretation Comments Chol (test code = Chol) 184 [place] 684532-02-17 19:58:00 Test Item Value Reference Range Interpretation Comments HDL (test code = HDL) 74 [place] [address]-02-17 19:58:00 Test Item Value Reference Range Interpretation Comments Trig (test code = Trig) 91 [place] [address]-02-17 19:58:00 Test Item Value Reference Range Interpretation Comments LDL (Calculated) (test code = LDL 91 (Calculated)) [place] [address]-02-17 19:58:00 Test Item Value Reference Range Interpretation Comments CHD Risk (test code = CHD Risk) 2.5 [facility]WvokqarRPHGYL0040-17-42 19:58:00 Test Item Value Reference Range Interpretation Comments Non HDL Chol (test code = Non HDL Chol) [address] [facility]2021-04-14 20:17:00 Test Item Value Reference Range Interpretation Comments Glucose Lvl (test code = Glucose Lvl) 86 65-[address] [facility]2021-04-14 20:17:00 Test Item Value Reference Range Interpretation Comments BUN (test code = BUN) 19 7-25 [place] 781161-04-14 20:17:00 Test Item Value Reference Range Interpretation Comments Creatinine Lvl (test code = Creatinine 0.90 0.60-0.88 Lvl) [place] 781161-04-14 20:17:00 Test Item Value Reference Range Interpretation Comments eGFR NON-AFR. [place] (test code = 59 eGFR NON-AFR. [place]) [place] 781161-04-14 20:17:00 Test Item Value Reference Range Interpretation Comments eGFR (test code = eGFR 69 ) [place] 781161-04-14 20:17:00 Test Item Value Reference Range Interpretation Comments B/C Ratio (test code = B/C Ratio) 21 6-22 [place] 781161-04-14 20:17:00 Test Item Value Reference Range Interpretation Comments Sodium Lvl (test code = Sodium Lvl) 139 135-146 [place] 781161-04-14 20:17:00 Test Item Value Reference Range Interpretation Comments Potassium Lvl (test code = Potassium 4.0 3.5-5.3 Lvl) [facility]2021-04-14 20:17:00 Test Item Value Reference Range Interpretation Comments Chloride Lvl (test code = Chloride Lvl) 101 98-110 [place] 781161-04-14 20:17:00 Test Item Value Reference Range Interpretation Comments CO2 (test code = CO2) 27 20-32 [place] 781161-04-14 20:17:00 Test Item Value Reference Range Interpretation Comments Calcium Lvl (test code = Calcium Lvl) 9.7 8.6-10.4 [place] 781161-04-14 20:17:00 Test Item Value Reference Range Interpretation Comments Total Protein (test code = Total 7.7 6.1-8.1 Protein) [place] 781161-04-14 20:17:00 Test Item Value Reference Range Interpretation Comments Albumin Lvl (test code = Albumin Lvl) 4.7 3.6-5.1 [place] 781161-04-14 20:17:00 Test Item Value Reference Range Interpretation Comments Globulin (test code = Globulin) 3.0 1.9-3.7 [place] 781161-04-14 20:17:00 Test Item Value Reference Range Interpretation Comments A/G Ratio (test code = A/G Ratio) 1.6 1.0-2.[address] [facility]2021-04-14 20:17:00 Test Item Value Reference Range Interpretation Comments Bili Total (test code = Bili Total) 0.6 0.2-1.[address] [facility]2021-04-14 20:17:00 Test Item Value Reference Range Interpretation Comments Alk Phos (test code = Alk Phos) 49 37-[address] [facility]2021-04-14 20:17:00 Test Item Value Reference Range Interpretation Comments ASPARTATE TRANSAMINASE (test code = 24 10-35 ASPARTATE TRANSAMINASE) [facility]2021-04-14 20:17:00 Test Item Value Reference Range Interpretation Comments ALANINE AMINOTRANSFERASE (test code = 12 6-29 ALANINE AMINOTRANSFERASE) [facility] HospitalYmojxdwLVLVYKDCYT0517-40-96 20:17:00 Test Item Value Reference Range Interpretation Comments WBC X 10x3 (test code = WBC X 10x3) 5.0 3.8-10.8 [place] 630741-04-14 20:17:00 Test Item Value Reference Range Interpretation Comments RBC X 10x6 (test code = RBC X 10x6) 4.17 3.80-5.[address] [facility] HospitalXsuyvsfAUNVWZJTAY2305-34-15 20:17:00 Test Item Value Reference Range Interpretation Comments Hgb (test code = Hgb) 12.6 11.7-15.[address] [facility] HospitalGpbiqzzAQXOAHTHAT0517-28-27 20:17:00 Test Item Value Reference Range Interpretation Comments Hct (test code = Hct) 36.1 35.0-45.0 [place] 630741-04-14 20:17:00 Test Item Value Reference Range Interpretation Comments MCV (test code = MCV) 86.6 80.0-100.0 [place] 630741-04-14 20:17:00 Test Item Value Reference Range Interpretation Comments MCH (test code = MCH) 30.2 pg 27.0-33.[address] [facility] HospitalCjpjkqwKLGUHTCQTT2826-34-62 20:17:00 Test Item Value Reference Range Interpretation Comments MCHC (test code = MCHC) 34.9 32.0-36.[address] [facility] HospitalDpjkciyMGKGMNPTNZ7837-89-34 20:17:00 Test Item Value Reference Range Interpretation Comments RDW (test code = RDW) 13.3 11.0-15.[address] [facility] HospitalAswlltnNIPNFDMHTA3082-56-66 20:17:00 Test Item Value Reference Range Interpretation Comments Platelet (test code = Platelet) 250 140-[address] [facility] [facility] HospitalHvksntdEJWINCBSHP9574-01-31 20:17:00 Test Item Value Reference Range Interpretation Comments MPV (test code = MPV) 10.3 7.5-12.5 [facility]QqvntkfDOYVXH9948-43-09 20:17:00 Test Item Value Reference Range Interpretation Comments Chol (test code = Chol) 206 [facility]stBrujtkcZYLHOJ0489-43-41 20:17:00 Test Item Value Reference Range Interpretation Comments HDL (test code = HDL) 76 [facility]stSgyrysdYWPMEF7695-91-54 20:17:00 Test Item Value Reference Range Interpretation Comments Trig (test code = Trig) 91 [facility]stLutkrhnSBPJMK5130-56-91 20:17:00 Test Item Value Reference Range Interpretation Comments LDL (Calculated) (test code = LDL 111 (Calculated)) [facility]stYwgtppzLTKZHM7122-12-55 20:17:00 Test Item Value Reference Range Interpretation Comments CHD Risk (test code = CHD Risk) 2.7 [facility] Hill[facility]stLkcnourYRNOES9822-16-30 20:17:00 Test Item Value Reference Range Interpretation Comments Non HDL Chol (test code = Non HDL Chol) 130 [facility]
[2022-10-07] MEDS ORDERED: MORPHINE 2 MG/ML SYR ONE (14:19)
[2022-10-07] MEDS ORDERED: ONDANSETRON 4 MG/2 ML VIAL ONE (14:19)
[2022-10-07 14:43] LABS: Absolute Lymphocytes (CBC) 0.6 K/uL (0.7-4.9); Hematocrit 33.9 % (36.0-45.0); Lymphocytes % 13.5 % (15.3-44.8); MCV 88.3 fL (80-100); MPV 7.7 fL (7.6-11.3); RBC Red Blood Cell Count 3.84 M/uL (3.86-4.86)
[2022-10-07 14:43] LABS: Urine Blood Trace-intact (Negative); Urine Glucose Negative (Negative); Urine Protein Trace (Negative); Urine Specific Gravity 1.025 (1.005-1.030); Urine pH 5.5 (5.0-7.0)
[2022-10-07 15:04] LABS: Potassium 3.8 mmol/L (3.5-5.1)
--- NOTE | 2022-10-07 17:25 | RAD REPORT ---
EXAM DESCRIPTION: CT - Stone Protocol - 10/07/2022 5:16 pm CLINICAL HISTORY: Flank pain. right flank pain COMPARISON: Stone Protocol dated 11/13/2017 TECHNIQUE: Axial images were obtained without oral or IV contrast. Lack of contrast limits solid org an and vascular assessment. The hwugq-hk-mmgh spans the entirety of the system partially obscuring uppermost abdomen and lung bases. Coronal reformatted images were obtained and reviewed. All CT scans are performed using dose optimization technique as appropriate and may include automated exposure control or mA/KV adjustment according to patient size. FINDINGS: The lower lung storey are clear. Cholecystectomy. Imaged portions of the liver and spleen show no suspicious findings on non-contrast imaging. The panc reas and adrenal glands are normal. No pathologic lymphadenopathy in the abdomen or pelvis. No urinary tract stones or obstructive uropathy. Bilateral renal cysts are present, largest on the ri ght inferiorly measuring 5.5 cm. No bowel obstruction, free air, free fluid or abscess. Normal appendix noted. Moderate lumbar degenerative changes. IMPRESSION: No urinary tract stones or obstructive uropathy. Bilateral renal cysts are present, benign appearance.
--- NOTE | 2022-10-07 17:30 | EDPHYS ---
Physician Documentation [facility] Name: Dinora Gutierrez Age: 87 yrs Sex: Female : 1935 Arrival Date: 10/07/2022 Time: 14:03 Bed 19 Private MD: ED Physician Adalberto Mondragon HPI: 10/07 14:11 This 87 yrs old Black Female presents to ER via Ambulatory with complaints of right jmm side pain, Back Pain. 14:11 The patient complains of pain in the right flank. Onset: The symptoms/episode jmm began/occurred gradually, 2 day(s) ago. Modifying factors: The symptoms are alleviated by change of position, the symptoms are aggravated by movement. Associated signs and symptoms: Pertinent negatives: fever, vomiting. This is an 87 year old female with a history of htn, hypothyroidism that presents to the ED with complaints of right back pain beginning 2 days ago. Patient attributes the pain to sitting in a low couch. Denies vomiting, fever, dysuria. Patient has some concerns pain may be due to an issue with her right kidney. . Historical: - Allergies: 14:08 Lisinopril; ld1 14:08 PENICILLINS; ld1 14:08 zestil; ld1 - PMHx: 14:08 Hypertension; Hypothyroidism; ld1 - PSHx: 14:08 Total abdominal hysterectomy; section; ld1 - Immunization history:: Adult Immunizations up to date, Client reports receiving the 2nd dose of the Covid vaccine. - Social history:: Smoking status: Patient denies any tobacco usage or history of. Patient/guardian denies using alcohol. ROS: 14:11 Constitutional: Negative for fever, chills, and weight loss, Cardiovascular: Negative jmm for chest pain, palpitations, and edema, Respiratory: Negative for shortness of breath, cough, wheezing, and pleuritic chest pain. 14:11 Back: Positive for flank pain. 14:11 All other systems are negative. Exam: 14:11 Constitutional: This is a well developed, well nourished patient who is awake, alert, jmm and in no acute distress. Head/Face: atraumatic. Eyes: EOMI, no conjunctival erythema appreciated ENT: Moist Mucus Membranes Neck: Trachea midline, Supple Chest/axilla: Normal chest wall appearance and motion. Cardiovascular: Regular rate and rhythm. No edema appreciated Respiratory: Normal respirations, no respiratory distress appreciated Abdomen/GI: Non distended 14:11 Skin: General appearance color normal MS/ Extremity: Moves all extremities, no obvious deformities appreciated, no edema noted to the lower extremities Neuro: Awake and alert Psych: Behavior is normal, Mood is normal, Patient is cooperative and pleasant 14:11 Back: pain, that is moderate, of the right flank. Vital Signs: 14:08 BP 154 / 83; Pulse 91; Resp 18; Temp 99.1(O); Pulse Ox 100% on R/A; Weight 58.97 kg; ld1 Height 5 ft. 9 in. (175.26 cm); Pain 8/10; 14:36 BP 143 / 64; Pulse 81; Resp 18 S; Pulse Ox 98% on R/A; Pain 9/10; kc6 15:36 BP 163 / 82; Pulse 75; Resp 18 S; Pulse Ox 98% on R/A; ld1 16:36 BP 169 / 86; Pulse 80; Resp 16 S; Temp 98.8; Pulse Ox 99% on R/A; Pain 0/10; kc6 14:08 Body Mass Index 19.20 (58.97 kg, 175.26 cm) ld1 MDM: 14:14 Patient medically screened. [facility] 17:28 Data reviewed: vital signs, nurses notes. Counseling: I had a detailed discussion with fifi the patient and/or guardian regarding: the historical points, exam findings, and any diagnostic results supporting the discharge/admit diagnosis, lab results, radiology results, the need for outpatient follow up, to return to the emergency department if symptoms worsen or persist or if there are any questions or concerns that arise at home. ED course: Patient is alert and non toxic in appearance in the ED. Pain is relieved. Patient advised to follow up with pcp and otherwise given strict return precautions. . 10/07 14:11 Order name: CBC with Diff; Complete Time: 14:44 [facility] 10/07 14:11 Order name: BMP; Complete Time: 15:05 [facility] 10/07 14:43 Order name: Urine Dipstick-Ancillary; Complete Time: 14:44 [facility] 10/07 16:13 Order name: Stone Protocol; Complete Time: 17:28 [facility] 10/07 14:11 Order name: IV Saline Lock; Complete Time: 14:35 [facility] 10/07 14:11 Order name: Labs collected and sent; Complete Time: 14:35 [facility] 10/07 14:11 Order name: Urine Dipstick-Ancillary (obtain specimen); Complete Time: 14:43 [facility] Administered Medications: 14:35 Drug: morphine 2 mg Route: IVP; Infused Over: 4 mins; Site: right antecubital; kc6 15:35 Follow up: Response: No adverse reaction; Pain is decreased; RASS: Alert and Calm (0) kc6 14:35 Drug: Zofran (Ondansetron) 4 mg Route: IVP; Site: right antecubital; kc6 15:35 Follow up: Response: No adverse reaction; Nausea is decreased kc6 Disposition: 18:00 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 Attestation: The patient's [facility] history, exam findings, diagnostics, and a summary of any interventions or procedures was reviewed in detail with Enio MARION. Disposition Summary: 10/07/22 17:30 Discharge Ordered Location: Home [facility] Condition: Stable [facility] Diagnosis - Strain of muscle, fascia and tendon of abdomen, lower back and pelvis [facility] Followup: [facility] - With: Private Physician - When: 2 - 3 days - Reason: Recheck today's complaints, Continuance of care, Re-evaluation by your physician Discharge Instructions: - Discharge Summary Sheet [facility] Forms: - Medication Reconciliation Form [facility] - Thank You Letter [facility] - Antibiotic Education [facility] - Prescription Opioid Use [facility] Prescriptions: - orphenadrine citrate 100 mg Oral Tablet Sustained Release - take 1 tablet by ORAL route 2 times per day As needed; 20 tablet; Refills: 0, [facility] Product Selection Permitted - Macrobid 100 mg Oral Capsule - take 1 capsule by ORAL route every 12 hours for 7 days; 14 capsule; Refills: 0, [facility] Product Selection Permitted Signatures: Dispatcher [employer] Enio Emanuel PA PA jmm Dibbern, Lauren RN RN ld1 Adalberto Mondragon MD MD [id number] Gena Thomas RN RN kc6 Corrections: (The following items were deleted from the chart) 14:08 14:08 PSHx: None; ld1 ld1
--- NOTE | 2022-10-07 17:30 | ER ---
Nurse's Notes [facility] Name: Dinora Gutierrez Age: 87 yrs Sex: Female : 1935 Arrival Date: 10/07/2022 Time: 14:03 Bed 19 Private MD: Diagnosis: Strain of muscle, fascia and tendon of abdomen, lower back and pelvis Presentation: 10/07 14:08 Chief complaint: Patient states: Right flank pain X 2-3 days. Coronavirus screen: At ld1 this time, the client does not indicate any symptoms associated with coronavirus-19. Ebola Screen: No symptoms or risks identified at this time. Initial Sepsis Screen: Does the patient meet any 2 criteria? No. Patient's initial sepsis screen is negative. Does the patient have a suspected source of infection? No. Patient's initial sepsis screen is negative. Risk Assessment: Do you want to hurt yourself or someone else? Patient reports no desire to harm self or others. Onset of symptoms was October 07, 2022. 14:08 Method Of Arrival: Ambulatory ld1 14:08 Acuity: XAVIER 3 ld1 Triage Assessment: 14:08 General: Appears in no apparent distress. uncomfortable, Behavior is calm, cooperative, ld1 appropriate for age. Pain: Complains of pain in right low back Pain does not radiate. Pain currently is 8 out of 10 on a pain scale. Quality of pain is described as sharp, shooting. EENT: No signs and/or symptoms were reported regarding the EENT system. Neuro: Level of Consciousness is awake, alert, obeys commands, Oriented to person, place, time, situation. Cardiovascular: Capillary refill < 3 seconds Patient's skin is warm and dry. Respiratory: Airway is patent Respiratory effort is even, unlabored. GI: Abdomen is flat, non-distended. : No signs and/or symptoms were reported regarding the genitourinary system. Derm: No signs and/or symptoms reported regarding the dermatologic system. Musculoskeletal: Range of motion: intact in all extremities. Historical: - Allergies: 14:08 Lisinopril; ld1 14:08 PENICILLINS; ld1 14:08 zestil; ld1 - PMHx: 14:08 Hypertension; Hypothyroidism; ld1 - PSHx: 14:08 Total abdominal hysterectomy; section; ld1 - Immunization history:: Adult Immunizations up to date, Client reports receiving the 2nd dose of the Covid vaccine. - Social history:: Smoking status: Patient denies any tobacco usage or history of. Patient/guardian denies using alcohol. Screenin:35 Abuse screen: Denies threats or abuse. Denies injuries from another. Nutritional kc6 screening: No deficits noted. Tuberculosis screening: No symptoms or risk factors identified. Fall Risk No fall in past 12 months (0 pts). No secondary diagnosis (0 pts). IV access (20 points). Ambulatory Aid- None/Bed Rest/Nurse Assist (0 pts). Gait- Normal/Bed Rest/Wheelchair (0 pts) Mental Status- Oriented to own ability (0 pts). Total Shultz Fall Scale indicates No Risk (0-24 pts). Assessment: 14:36 General: Appears in no apparent distress. comfortable, Behavior is calm, cooperative, kc6 appropriate for age. Pain: Complains of pain in right flank Pain does not radiate. Pain currently is 9 out of 10 on a pain scale. Quality of pain is described as sharp, stabbing, Pain began 2-3 days ago. Is continuous, Alleviated by rest, Aggravated by increased activity, repositioning, Also complains of no other associated symptoms. Neuro: Valdez Agitation-Sedation Scale (RASS): 0 - Alert and Calm Level of Consciousness is awake, alert, obeys commands, Oriented to person, place, time, situation, Appropriate for age. Cardiovascular: Heart tones S1 S2 present Capillary refill < 3 seconds. Respiratory: Airway is patent Trachea midline Respiratory effort is even, unlabored, Respiratory pattern is regular, symmetrical, Breath sounds are clear bilaterally. GI: No signs and/or symptoms were reported involving the gastrointestinal system. : No signs and/or symptoms were reported regarding the genitourinary system. EENT: No signs and/or symptoms were reported regarding the EENT system. Derm: No signs and/or symptoms reported regarding the dermatologic system. Skin is intact, Skin is pink, warm \T\ dry. Musculoskeletal: No signs and/or symptoms reported regarding the musculoskeletal system. Circulation, motion, and sensation intact. Capillary refill < 3 seconds, Range of motion: intact in all extremities. 15:36 Reassessment: Patient appears in no apparent distress at this time. No changes from ld1 previously documented assessment. Patient and/or family updated on plan of care and expected duration. Pain level reassessed. Patient is alert, oriented x 3, equal unlabored respirations, skin warm/dry/pink. 16:36 Reassessment: Patient appears in no apparent distress at this time. No changes from kc6 previously documented assessment. Patient and/or family updated on plan of care and expected duration. Pain level reassessed. Patient is alert, oriented x 3, equal unlabored respirations, skin warm/dry/pink. Patient denies pain at this time. Patient states feeling better. Patient states symptoms have improved. Vital Signs: 14:08 BP 154 / 83; Pulse 91; Resp 18; Temp 99.1(O); Pulse Ox 100% on R/A; Weight 58.97 kg; ld1 Height 5 ft. 9 in. (175.26 cm); Pain 8/10; 14:36 BP 143 / 64; Pulse 81; Resp 18 S; Pulse Ox 98% on R/A; Pain 9/10; kc6 15:36 BP 163 / 82; Pulse 75; Resp 18 S; Pulse Ox 98% on R/A; ld1 16:36 BP 169 / 86; Pulse 80; Resp 16 S; Temp 98.8; Pulse Ox 99% on R/A; Pain 0/10; kc6 14:08 Body Mass Index 19.20 (58.97 kg, 175.26 cm) ld1 ED Course: 14:03 Patient arrived in ED. am2 14:03 Enio Johnson PA is PHCP. [facility] 14:03 Adalberto Mondragon MD is Attending Physician. [facility] 14:08 Arm band placed on right wrist. ld1 14:09 Triage completed. ld1 14:15 Gena Thomas, LEDA is Primary Nurse. kc6 14:35 CBC with Diff Sent. kc6 14:35 BMP Sent. kc6 14:35 Inserted saline lock: 20 gauge in right antecubital area, using aseptic technique. kc6 Blood collected. 17:18 Stone Protocol In Process Unspecified. EDMS 17:45 No provider procedures requiring assistance completed. IV discontinued, intact, kc6 bleeding controlled, No redness/swelling at site. Pressure dressing applied. 17:46 Patient has correct armband on for positive identification. Bed in low position. Call kc6 light in reach. Side rails up X 1. Administered Medications: 14:35 Drug: morphine 2 mg Route: IVP; Infused Over: 4 mins; Site: right antecubital; kc6 15:35 Follow up: Response: No adverse reaction; Pain is decreased; RASS: Alert and Calm (0) kc6 14:35 Drug: Zofran (Ondansetron) 4 mg Route: IVP; Site: right antecubital; kc6 15:35 Follow up: Response: No adverse reaction; Nausea is decreased kc6 Medication: 17:46 VIS not applicable for this client. kc6 Outcome: 17:30 Discharge ordered by . fifi 17:46 Discharged to home ambulatory. 6 17:46 Condition: stable 17:46 Discharge instructions given to patient, Instructed on discharge instructions, medication usage, Demonstrated understanding of instructions, medications, Prescriptions given X 2. 17:46 Patient left the ED. kc6 Signatures: Dispatcher [employer] EDMS Enio Johnson PA PA jmm Moreno, Amanda am2 Kary Vines RN RN ld1 Gena Thomas RN RN kc6 Corrections: (The following items were deleted from the chart) 14:08 14:08 PSHx: None; ld1 ld1
[2022-10-07 18:04] VITALS: BP 169/86; TEMP 98.8; O2SAT 99
== END 2022-10-07 17:46 | disposition home or self-care (01) ==
LOC: ER 14:01
DX: S39.011A Strain of muscle, fascia and tendon of abdomen, initial encounter (principal); S39.012A Strain of muscle, fascia and tendon of lower back, initial encounter; S39.013A Strain of muscle, fascia and tendon of pelvis, initial encounter; I10 Essential (primary) hypertension; Z88.0 Allergy status to penicillin; Z88.8 Allergy status to other drugs, medicaments and biological substances
CPT/HCPCS: 85025; 80048; 36415; 81003; 76377; 74176; J2270; J2405; 96374; 96375; 99284

== ENCOUNTER 2024-10-25 14:38 | Emergency (ER) | payer OTHER ==
--- NOTE | 2024-10-25 15:09 | ER ---
Nurse's Notes [facility] Name: Dinora Gutierrez Age: 89 yrs Sex: Female : 1935 Arrival Date: 10/25/2024 Time: 14:38 Bed 25 Private MD: Diagnosis: Essential (primary) hypertension Presentation: 10/25 14:53 Chief complaint: Patient states: I always have a high blood pressure. I just came in tm6 because I wanted my BP checked. I took my BP meds today. Coronavirus screen: Client denies travel out of the [place] in the last 14 days. Ebola Screen: Patient negative for fever greater than or equal to 101.5 degrees Fahrenheit, and additional compatible Ebola Virus Disease symptoms Patient denies exposure to infectious person. Patient denies travel to an Ebola-affected area in the 21 days before illness onset. No symptoms or risks identified at this time. Initial Sepsis Screen: Does the patient meet any 2 criteria? No. Patient's initial sepsis screen is negative. Does the patient have a suspected source of infection? No. Patient's initial sepsis screen is negative. Risk Assessment: Do you want to hurt yourself or someone else? Patient reports no desire to harm self or others. Onset of symptoms was October 25, 2024. 14:53 Method Of Arrival: Ambulatory tm6 14:53 Acuity: XAVIER 3 tm6 Triage Assessment: 14:57 General: Appears in no apparent distress. Behavior is calm, cooperative. Pain: Denies tm6 pain. EENT: No signs and/or symptoms were reported regarding the EENT system. Neuro: Level of Consciousness is awake, alert, obeys commands, Oriented to person, place, time, situation. Cardiovascular: Patient's skin is warm and dry. Respiratory: Airway is patent Respiratory effort is even, unlabored, Respiratory pattern is regular, symmetrical. GI: No signs and/or symptoms were reported involving the gastrointestinal system. Abdomen is flat, non-distended. : No signs and/or symptoms were reported regarding the genitourinary system. Derm: No signs and/or symptoms reported regarding the dermatologic system. Musculoskeletal: No signs and/or symptoms reported regarding the musculoskeletal system. Historical: - Allergies: 14:57 Lisinopril; tm6 14:57 PENICILLINS; tm6 14:57 zestil; tm6 - PMHx: 14:57 Hypertension; Hypothyroidism; tm6 - PSHx: 14:57 section; Total abdominal hysterectomy; tm6 - Immunization history:: Flu vaccine is up to date. - Infectious Disease History:: Denies. - Social history:: Smoking status: Patient denies any tobacco usage or history of. Screenin:45 [facility] ED Fall Risk Assessment (Adult) History of falling in the last 3 months, me1 including since admission No falls in past 3 months (0 pts) Confusion or Disorientation No (0 pts) Intoxicated or Sedated No (0 pts) Impaired Gait No (0 pts) Mobility Assist Device Used No (0 pt) Altered Elimination No (0 pt) Score/Fall Risk Level 0 - 2 = Low Risk Maintained a safe environment, Provided non-skid footwear, Hourly rounding (assess needs \T\ fall precautionary measures) done. Abuse screen: Denies threats or abuse. Nutritional screening: No deficits noted. Tuberculosis screening: No symptoms or risk factors identified. Assessment: 14:45 General: Appears comfortable, well groomed, well developed, well nourished, Behavior is me1 calm, cooperative, appropriate for age, Reports needing her bp checked. States it runs high. Pain: Denies pain. Neuro: Level of Consciousness is awake, alert, obeys commands, Oriented to person, place, time, situation, Appropriate for age. Cardiovascular: Patient's skin is warm and dry. Respiratory: Airway is patent Respiratory effort is even, unlabored, Respiratory pattern is regular, symmetrical. GI: No signs and/or symptoms were reported involving the gastrointestinal system. : No signs and/or symptoms were reported regarding the genitourinary system. EENT: No signs and/or symptoms were reported regarding the EENT system. Derm: Skin is intact, is healthy with good turgor, Skin is pink, warm \T\ dry. Musculoskeletal: No signs and/or symptoms reported regarding the musculoskeletal system. Vital Signs: 14:53 BP 181 / 96; Pulse 82; Resp 19; Temp 98.1(O); Pulse Ox 98% on R/A; MAP 117 mmHg; Weight tm6 63.5 kg; Height 5 ft. 10 in. ; Pain 0/10; 14:55 BP 156 / 91; Pulse 70; Resp 16; Temp 98.1; Pulse Ox 99% ; me1 15:09 BP 156 / 91; kb 14:53 Body Mass Index 20.09 (63.50 kg, 177.8 cm) tm6 14:53 Pain Scale: Adult tm6 ED Course: 14:41 Patient arrived in ED. mr 14:42 Paul Ramos MD is Attending Physician. rn 14:42 [facility]C [facility] kb 14:42 Attending Physician role handed off by Paul Ramos MD kb 14:42 Rafael Birch DO is Attending Physician. kb 14:43 Attending Physician role handed off by Rafael Birch DO rn 14:43 Paul Ramos MD is Attending Physician. rn 14:45 Patient has correct armband on for positive identification. Bed in low position. Call me1 light in reach. Side rails up X2. Provided Education on: POC. Verbalized understanding.. Client placed on continuous cardiac and pulse oximetry monitoring. NIBP monitoring applied. Pulse ox on. NIBP on. 14:45 No provider procedures requiring assistance completed. Patient did not have IV access me1 during this emergency room visit. 14:46 Cherri La, RN is Primary Nurse. me1 14:57 Triage completed. tm6 14:57 Arm band placed on right wrist. tm6 Administered Medications: No medications were administered Medication: 14:45 VIS not applicable for this client. me1 Outcome: 15:08 Discharge ordered by . kb 15:12 Discharged to home ambulatory, me1 15:12 Condition: stable 15:12 Discharge instructions given to patient, Instructed on discharge instructions, follow up and referral plans. Demonstrated understanding of instructions, follow-up care, 15:13 Patient left the ED. me1 Signatures: Gretchen Grover FNP-C FNP-Jay SegalMagalie, Reg Reg mr Paul Ramos MD MD rn Eddleman, Michelle, RN RN me1 Kofi Shrestha RN RN tm6
--- NOTE | 2024-10-25 15:09 | EDPHYS ---
Physician Documentation [facility] Name: Dinora Gutierrez Age: 89 yrs Sex: Female : 1935 Arrival Date: 10/25/2024 Time: 14:38 Bed 25 Private MD: ED Physician Paul Ramos HPI: 10/25 16:42 This 89 yrs old Black Female presents to ER via Ambulatory with complaints of BP check. kb 16:42 Pt is an 89 year old female who presents for a blood pressure check. States she stops kb by when shes in the area to get it checked. States she feels great. Denies chest pain, shortness of breath, headache. States her bp normally runs 160-180/90s. . Historical: - Allergies: 14:57 Lisinopril; tm6 14:57 PENICILLINS; tm6 14:57 zestil; tm6 - PMHx: 14:57 Hypertension; Hypothyroidism; tm6 - PSHx: 14:57 section; Total abdominal hysterectomy; tm6 - Immunization history:: Flu vaccine is up to date. - Infectious Disease History:: Denies. - Social history:: Smoking status: Patient denies any tobacco usage or history of. ROS: 16:42 Constitutional: As per HPI kb Exam: 15:09 Constitutional: This is a well developed, well nourished patient who is awake, alert, kb and in no acute distress. Head/Face: Normocephalic, atraumatic. ENT: Moist Mucous membranes Cardiovascular: Regular rate Respiratory: Respirations even and unlabored. No increased work of breathing. Talking in full sentences Skin: Warm, dry with normal turgor. Normal color. MS/ Extremity: Pulses equal, no cyanosis. Neurovascular intact. Full, normal range of motion. Neuro: Awake and alert, GCS 15, oriented to person, place, time, and situation. Vital Signs: 14:53 BP 181 / 96; Pulse 82; Resp 19; Temp 98.1(O); Pulse Ox 98% on R/A; MAP 117 mmHg; Weight tm6 63.5 kg; Height 5 ft. 10 in. ; Pain 0/10; 14:55 BP 156 / 91; Pulse 70; Resp 16; Temp 98.1; Pulse Ox 99% ; me1 15:09 BP 156 / 91; kb 14:53 Body Mass Index 20.09 (63.50 kg, 177.8 cm) tm6 14:53 Pain Scale: Adult tm6 MDM: 14:42 Medical Screening Exam initiated rn 16:44 Differential diagnosis: primary hypertension, malignant hypertension. Data reviewed: kb vital signs, nurses notes. Test considered but Not performed: Labs: cbc, cmp, trop considered but pt has no complaints, is asymptomatic of bp. Counseling: I had a detailed discussion with the patient and/or guardian regarding the historical points, exam findings, and any diagnostic results supporting the discharge/admit diagnosis, the need for outpatient follow up, a family practitioner, to return to the emergency department if symptoms worsen or persist or if there are any questions or concerns that arise at home. Administered Medications: No medications were administered Disposition: 15:57 Co-signature as Attending Physician, Paul Ramos MD I reviewed the patient's care rn provided by the Advanced Practice Provider and agree with the diagnosis and treatment plan. Disposition Summary: 10/25/24 15:08 Discharge Ordered Notes: Location: Home kb Condition: Stable kb Diagnosis - Essential (primary) hypertension kb Followup: kb - With: Emergency Department - When: As needed - Reason: Worsening of condition Followup: kb - With: Private Physician - When: 2 - 3 days - Reason: Recheck today's complaints, Continuance of care, Re-evaluation by your physician Discharge Instructions: - Discharge Summary Sheet kb - Hypertension, Adult, [id number] kb - Managing Your Hypertension kb Forms: - Medication Reconciliation Form kb - Antibiotic Education kb - Prescription Opioid Use kb - Patient Portal Instructions kb - Leadership Thank You Letter kb Signatures: Gretchen Grover FNP-Van GASTON-Paul Vera MD MD rn HenriettaKofi reza RN RN tm6
[2024-10-25 15:38] VITALS: TEMP 98.1
[2024-10-25 15:40] VITALS: BP 156/91; O2SAT 99
== END 2024-10-25 15:13 | disposition home or self-care (01) ==
LOC: ER 14:38
DX: I10 Essential (primary) hypertension (principal)
CPT/HCPCS: 99283

== ENCOUNTER 2025-01-02 11:55 | Emergency (ER) | payer OTHER ==
[2025-01-02] MEDS ORDERED: NA CHLORIDE 0.9% 1,000 ML ONE (12:14)
[2025-01-02 12:28] LABS: Absolute Basophils 0.1 K/uL (0-0.5); Absolute Lymphocytes (CBC) 1.4 K/uL (0.7-4.9); Absolute Monocytes 0.2 K/uL (0.1-1.3); Absolute Neutrophil 1.9 K/uL (1.8-8.0); Basophils % 1.9 % (0-1.3); Eosinophils % 0.7 % (0-4.4); Hematocrit 35.9 % (36.0-45.0); Hemoglobin 12.4 g/dL (12.0-15.0); Lymphocytes % 38.8 % (15.3-44.8); MCH 30.8 pg (27.0-35.0); MCHC 34.5 g/dL (32.0-36.0); MCV 89.4 fL (80-100); Monocytes % 6.6 % (3.3-12.3); Nucleated Red Blood Cells % 0.1 % (0-0); Platelets 223 thou/uL (152-406); RBC Red Blood Cell Count 4.01 M/uL (3.86-4.86)
[2025-01-02 12:48] LABS: Anion Gap 6.3 mEq/L (5.0-15.0); Potassium 3.3 mEq/L (3.5-5.1); Troponin High Sensitivity 7.4 pg/mL (<58.9)
--- NOTE | 2025-01-02 13:18 | RAD REPORT ---
EXAM: Chest Single View HISTORY: COUGH COMPARISON: 12/31/2014 FINDINGS: LUNGS/PLEURA: The lungs are clear. No pleural effusions or pneumothorax. No pulmonary edema. MEDIASTINUM: The mediastinal silhouette is within normal limits. CARDIAC: The cardiac silhouette is within normal limits. UPPER ABDOMEN: No significant abnormality. BONES: No acute abnormality. LINES/TUBES/OTHER: N/A IMPRESSION: No evidence of acute cardiopulmonary disease.
--- NOTE | 2025-01-02 13:38 | EDPHYS ---
Physician Documentation [facility] Name: Dinora Gutierrez Age: 89 yrs Sex: Female : 1935 Arrival Date: 01/02/2025 Time: 11:55 Bed 20 Private MD: ED Physician Donald Pereira HPI: 01/02 12:52 This 89 yrs old Black Female presents to ER via EMS with complaints of Syncope. ec2 12:52 Patient arrives today for diarrheal symptoms. Patient reports that she has been having ec2 some diarrheal symptoms today. Was having some abdominal cramping which is since resolved. No vomiting. Reports some lightheadedness as well.. Historical: - Allergies: 12:09 Lisinopril; me1 12:09 PENICILLINS; me1 12:09 zestil; me1 - PMHx: 12:09 Hypertension; Hypothyroidism; me1 - PSHx: 12:09 section; Total abdominal hysterectomy; me1 - Immunization history:: Adult Immunizations up to date. - Infectious Disease History:: Denies. - Social history:: Smoking status: Patient denies any tobacco usage or history of. ROS: 12:52 Constitutional: as per hpi ec2 Exam: 12:52 Constitutional: GEN: NAD Head: atraumatic Eyes: EOMI Ears: External ears are ec2 normal. CV: regular rate LUNGS: no respiratory distress ABD: non-distended, soft, nontender, not guarding, not rigid SKIN: no evidence of rashes MSK: no evidence of trauma Vital Signs: 12:00 BP 150 / 81; Pulse 76; Resp 18; Temp 98.4; Pulse Ox 94% ; Weight 68.04 kg; Height 5 ft. me1 8 in. ; Pain 0/10; 13:30 BP 168 / 82; Pulse 93; Resp 18; Pulse Ox 100% ; me1 14:30 BP 180 / 90; Pulse 91; Resp 17; Temp 98.1; Pulse Ox 100% ; me1 12:00 Body Mass Index 22.81 (68.04 kg, 172.72 cm) me1 12:00 Pain Scale: Adult me1 MDM: 12:02 Medical Screening Exam initiated ec2 12:25 ED course: EKG independently reviewed and interpreted by me, shows normal sinus rhythm, ec2 rate of 77, no acute ST segment elevations, normals are nonactionable. PACs noted.. 12:52 Data reviewed: vital signs, nurses notes. ED course: Patient arrives today for ec2 diarrheal issues as well as lightheadedness. Examination is unrevealing. Will obtain lab work, resuscitate with crystalloid as well.. 13:37 ED course: Labs show slight hypokalemia, renal dysfunction. Will discharge home, ec2 supplement her potassium instructed her on potassium supplementation at home. Return precautions given. Doubt process such as bacterial enteritis given reassuring abdominal examination, doubt appendicitis or cholecystitis.. 02 12:02 Order name: Basic Metabolic Panel; Complete Time: 13:37 ec2 01/02 12:02 Order name: CBC with Diff; Complete Time: 13:37 ec2 01/02 12:02 Order name: Troponin HS; Complete Time: 13:37 ec2 01/02 12:02 Order name: XRAY Chest (1 view); Complete Time: 13:37 ec2 01/02 12:02 Order name: EKG - Nurse/Tech; Complete Time: 12:30 ec2 01/02 12:02 Order name: IV Saline Lock; Complete Time: 12:19 ec2 01/02 12:02 Order name: Labs collected and sent; Complete Time: 12:19 ec2 01/02 12:02 Order name: O2 Per Protocol; Complete Time: 12:12 ec2 01/02 12:02 Order name: O2 Sat Monitoring; Complete Time: 12:12 ec2 Administered Medications: 12:20 Drug: NS 0.9% IV 500 ml 500 ml IV at 1 bolus once; to be given as a bolus over 30 me1 minutes Volume: 500 ml; Route: IV; Rate: 1 bolus; Site: right antecubital; 14:51 Follow up: Response: No adverse reaction; IV Status: Completed infusion; IV Intake: me1 500ml 13:52 Drug: Potassium Chloride PO 40 mEq PO once Route: PO; me1 14:11 Follow up: Response: No adverse reaction me1 Disposition Summary: 01/02/25 13:38 Discharge Ordered Notes: Location: Home ec2 Condition: Stable ec2 Diagnosis - Diarrhea, unspecified ec2 Followup: ec2 - With: Private Physician - When: - Reason: Re-evaluation by your physician Discharge Instructions: - Discharge Summary Sheet ec2 - Diarrhea, Adult ec2 Forms: - Medication Reconciliation Form ec2 - Antibiotic Education ec2 - Prescription Opioid Use ec2 - Patient Portal Instructions ec2 - Leadership Thank You Letter ec2 Prescriptions: - dicyclomine 10 mg Oral capsule - take 1 capsule ORAL route 3 times per day; 30 capsule; Refills: 0, Product ec2 Selection Permitted Signatures: Dispatcher [employer] [facility] Cherri La RN RN sd1 Donald Pereira MD MD ec2 Corrections: (The following items were deleted from the chart) 12:02 12:02 Chest Single View+[email or web address].[email or web address] ordered. [facility] 12:52 12:52 Patient arrives today for diarrheal symptoms. Patient reports that she has been ec2 having some diarrheal symptoms today. Was having some abdominal cramping which is since resolved. No vomiting.. ec2
--- NOTE | 2025-01-02 13:38 | ER ---
Nurse's Notes [facility] Name: Dinora Gutierrez Age: 89 yrs Sex: Female : 1935 Arrival Date: 01/02/2025 Time: 11:55 Bed 20 Private MD: Diagnosis: Diarrhea, unspecified Presentation: 01/02 12:00 Chief complaint: EMS states: toned out to [place] for syncopal episode. Patient was me1 starting to eat and had sudden onset bowel incontinence. While in the restroom cleaning up patient felt dizzy and states she may have lost consciousness but isnt sure. BGL 102. EMS started a 20g RAC. Coronavirus screen: Vaccine status: Patient reports receiving the 2nd dose of the covid vaccine. Ebola Screen: No symptoms or risks identified at this time. Initial Sepsis Screen: Does the patient meet any 2 criteria? Does the patient have a suspected source of infection? No. Patient's initial sepsis screen is negative. Risk Assessment: Do you want to hurt yourself or someone else? Patient reports no desire to harm self or others. Onset of symptoms was January 02, 2025 at 11:15. 12:00 Method Of Arrival: EMS: [facility] me1 12:00 Acuity: XAVIER 3 me1 Triage Assessment: 12:09 General: Appears in no apparent distress. well groomed, well developed, well nourished, me1 Behavior is calm, cooperative, appropriate for age. Pain: Denies pain. EENT: No signs and/or symptoms were reported regarding the EENT system. Neuro: Level of Consciousness is awake, alert, obeys commands, Oriented to person, place, time, situation, Appropriate for age Reports a syncopal episode. Cardiovascular: Patient's skin is warm and dry. Respiratory: Airway is patent Respiratory effort is even, unlabored, Respiratory pattern is regular, symmetrical. GI: Reports diarrhea. : No signs and/or symptoms were reported regarding the genitourinary system. Derm: Skin is intact, is healthy with good turgor, Skin is pink, warm \T\ dry. Musculoskeletal: No signs and/or symptoms reported regarding the musculoskeletal system. Historical: - Allergies: 12:09 Lisinopril; me1 12:09 PENICILLINS; me1 12:09 zestil; me1 - PMHx: 12:09 Hypertension; Hypothyroidism; me1 - PSHx: 12:09 section; Total abdominal hysterectomy; me1 - Immunization history:: Adult Immunizations up to date. - Infectious Disease History:: Denies. - Social history:: Smoking status: Patient denies any tobacco usage or history of. Screenin:11 [facility] ED Fall Risk Assessment (Adult) History of falling in the last 3 months, me1 including since admission No falls in past 3 months (0 pts) Confusion or Disorientation No (0 pts) Intoxicated or Sedated No (0 pts) Impaired Gait No (0 pts) Mobility Assist Device Used No (0 pt) Altered Elimination No (0 pt) Score/Fall Risk Level 0 - 2 = Low Risk Maintained a safe environment, Provided non-skid footwear, Hourly rounding (assess needs \T\ fall precautionary measures) done. Abuse screen: Denies threats or abuse. Nutritional screening: No deficits noted. Tuberculosis screening: No symptoms or risk factors identified. Assessment: 12:11 Reassessment: See triage assessment. me1 14:49 Reassessment: Discharge delayed to finish iv fluids. me1 14:50 Cardiovascular: Rhythm is regular. me1 Vital Signs: 12:00 BP 150 / 81; Pulse 76; Resp 18; Temp 98.4; Pulse Ox 94% ; Weight 68.04 kg; Height 5 ft. me1 8 in. ; Pain 0/10; 13:30 BP 168 / 82; Pulse 93; Resp 18; Pulse Ox 100% ; me1 14:30 BP 180 / 90; Pulse 91; Resp 17; Temp 98.1; Pulse Ox 100% ; me1 12:00 Body Mass Index 22.81 (68.04 kg, 172.72 cm) me1 12:00 Pain Scale: Adult me1 ED Course: 12:00 Patient arrived in ED. me1 12:01 Donald Pereira MD is Attending Physician. ec2 12:09 Triage completed. me1 12:09 Arm band placed on Patient placed in an exam room. me1 12:11 Patient has correct armband on for positive identification. Bed in low position. Call sd1 light in reach. Side rails up X 1. Provided Education on: POC. Verbalized understanding.. Client placed on continuous cardiac and pulse oximetry monitoring. NIBP monitoring applied. Pulse ox on. NIBP on. 12:11 No provider procedures requiring assistance completed. Maintain EMS IV. Dressing me1 intact. Good blood return noted. Site clean \T\ dry. Gauge \T\ site: 20g RAC. Flushed with 10 mL NS. 12:19 Basic Metabolic Panel Sent. me1 12:19 CBC with Diff Sent. me1 12:19 Troponin HS Sent. me1 12:58 Cherri La, RN is Primary Nurse. me1 13:13 XRAY Chest (1 view) In Process Unspecified. EDMS 14:50 IV discontinued, intact, bleeding controlled, No redness/swelling at site. Pressure me1 dressing applied. Administered Medications: 12:20 Drug: NS 0.9% IV 500 ml 500 ml IV at 1 bolus once; to be given as a bolus over 30 me1 minutes Volume: 500 ml; Route: IV; Rate: 1 bolus; Site: right antecubital; 14:51 Follow up: Response: No adverse reaction; IV Status: Completed infusion; IV Intake: me1 500ml 13:52 Drug: Potassium Chloride PO 40 mEq PO once Route: PO; me1 14:11 Follow up: Response: No adverse reaction me1 Medication: 12:11 VIS not applicable for this client. me1 Intake: 14:51 IV: 500ml; Total: 500ml. me1 Outcome: 13:38 Discharge ordered by . ec2 14:50 Discharged to home via wheelchair, with family, me1 14:50 Condition: stable 14:50 Discharge instructions given to patient, family, Instructed on discharge instructions, follow up and referral plans. medication usage, Demonstrated understanding of instructions, follow-up care, medications, Prescriptions given X 1, 14:50 Patient left the ED. me1 Signatures: Dispatcher [employer] [facility] Cherri La, RN RN me1 Donald Pereira MD MD ec2
[2025-01-02] MEDS ORDERED: POTASSIUM CL SA 10 MEQ TAB PO ONE (13:51)
[2025-01-02 14:55] VITALS: BP 180/90; TEMP 98.1; O2SAT 100
== END 2025-01-02 14:50 | disposition home or self-care (01) ==
LOC: ER 11:55
DX: R19.7 Diarrhea, unspecified (principal); R55 Syncope and collapse
CPT/HCPCS: 96361; 93005; 85025; 80048; 36415; 84484; 71045; 96360; 99284; J7030